=== PATIENT | female | born 1930 | race Caucasian/White ===

== ENCOUNTER 2016-07-08 10:51 | Inpatient (IN) | payer OTHER, MEDICARE ==
[~2016-07-08] VITALS: Ht 170.2 cm; Wt 78.2 kg
[~2016-07-08 10:51] MED LIST: ACCUPRIL10 MG PO; ANTIFUNGAL15 G1 TP; AQUAPHOR OINTM105 GM TP; BACTRIM,SEPT1 TABLET PO; CALCIUM 600 +1 EAC2 PO; CATAPRES0.1 MG PO; CHOLESTYRAMINE P4 GM PO; CIPRO250 MG PO; CIPRO500 MG PO; CLOPIDOGREL75 MG PO; COLO-40 TP; DEPO-MEDROL40 MG/ML IM; DOC-Q-LAX TABL1 EACH PO; DOCUSATE SODIU100 MG PO; ENDOCET 5-3251 EACH PO; HYDROCHLOROTH12.5 M3 PO; HYDROCHLOROTHIA50 MG; ICY HOT1 EACH TP; LEVETIRACETAM250 MG PO; LEVETIRACETAM500 MG PO; LEVOFLOXACIN750 MG PO; LIDOCAINE10 MG/1 ML IJ; LIPITOR10 MG PO; MELATONIN3 MG PO; METOPROLOL SUC100 MG; METOPROLOL SUCC25 MG PO; NEURONTIN100 MG PO; NORVASC10 MG PO; ONDANSETRON HCL4 MG PO; PANTOPRAZOLE SO40 MG PO; PERCOCET 5/31 TABLET PO; PHENERGAN25 MG PR; PHENERGAN25 MG/ML IV; PLAVIX75 MG; PLAVIX75 MG PO; PREDNISONE20 MG PO; PROTONIX40 MG PO; QUINAPRIL HCL10 MG; SENOKOT S,PE1 TABLET PO; SODIUM CHLORIDE1 G1 PO; SYNTHROID100 MCG; SYNTHROID100 MCG PO; SYNTHROID125 MCG PO; TOPAMAX50 MG PO; TOPROL XL100 MG PO; TOPROL XL25 MG PO; TRAMADOL HCL50 MG; TYLENOL REGULA325 MG PO; ULTRAM50 MG PO; WELLBUTRIN75 MG PO; ZANTAC150 MG PO; ZESTRIL40 MG PO; ZOCOR20 MG PO; ZOFRAN ODT4 MG PO; ZOFRAN4 MG PO; Zeasorb Antifungal Treatment,Mitrazol Powder TP
[2016-07-08 12:37] LABS: HEMATOCRIT 40.4 % (36.0-46.0); MCH 29.1 PG (29.0-34.0); MCHC 31.9 G/DL (30.0-36.0); PLATELET COUNT 310 K/uL (156-360); RBC DIS.WIDTH-CV 12.4 % (11.8-14.6); RBC DIS.WIDTH-SD 41.2 % (39-53); RED BLOOD COUNT 4.44 M/uL (3.80-5.20); WHITE BLOOD COUNT 8.8 K/uL (4.1-10.2)
[2016-07-08 12:51] LABS: CHLORIDE 92 mEq/L (99-109); POTASSIUM 4.3 mEq/L (3.7-5.4); SODIUM 132 mEq/L (136-147)
[2016-07-08 12:52] LABS: GLUCOSE 104 mg/dL (70-99)
[2016-07-08 12:54] LABS: ANION GAP 10 MEQ/L (2-14)
[2016-07-08 12:56] LABS: GFR ESTIMATE (CALCULATED) > 59 mL/min/
[2016-07-08 12:57] LABS: UREA NITROGEN (BUN) 9 mg/dL (9-23)
[2016-07-08 12:58] LABS: TROP-I INTERPRETATION NEGATIVE; TROPONIN-I < 0.01 ng/mL (0.0-0.30)
[2016-07-08 14:06] LABS: ADD MIUA? YES; BILIRUBIN NEGATIVE; BLOOD MODERATE; COLOR YELLOW ((YELLOW)); GLUCOSE (STRIP) NEGATIVE; KETONES NEGATIVE; LEUKOCYTES LARGE; NITRITE NEGATIVE; PROTEIN (STRIP) 100; SPECIFIC GRAVITY 1.013 (1.000-1.030); UROBILINOGEN 0.2 MG/DL (0.2-1.0)
[2016-07-08 14:20] LABS: BACTERIA 3+ /HPF; EPITHELIAL CELLS 1+ /HPF; MUCUS TRACE /LPF; RED BLOOD CELLS 30-40 /HPF (0-5); UCUL ADDED? YES; WHITE BLOOD CELLS TNTC /HPF (0-5); WHITE BLOOD CELLS CLUMP MANY /HPF (0-5)
[2016-07-08] MEDS ORDERED: BENZONATATE100 MG PO (17:18)
[2016-07-08] MEDS ORDERED: DUONEB 2.5-0.5 M3 ML AEROSOL (17:20)
[2016-07-08] MEDS ORDERED: ELIQUIS5 MG PO (17:21)
[2016-07-08] MEDS ORDERED: METOPROLOL TART75 MG PO (17:23)
[2016-07-08] MEDS ORDERED: PERCOCET 5/31 TABLET PO (17:23)
[2016-07-08] MEDS ORDERED: PROMETHAZINE12.5 M1 PO (17:24)
[2016-07-08 20:00] LABS: TROP-I INTERPRETATION NEGATIVE; TROPONIN-I < 0.01 ng/mL (0.0-0.30)
[2016-07-08 20:28] VITALS: BP 131/70
[2016-07-08 20:30] VITALS: BP 131/70
[2016-07-08 22:07] LABS: METH RESISTANT S AUREUS PCR NEGATIVE (NEGATIVE)
[2016-07-08 22:15] LABS: PROBE CHECK PASS; SPECIMEN PROCESSING CONTROL PASS
[2016-07-08 23:55] VITALS: BP 117/54
[2016-07-09] VITALS (14 sets, daily range): BP systolic 108–139; BP diastolic 45–114
[2016-07-09 05:57] LABS: HEMATOCRIT 39.3 % (36.0-46.0); MCH 29.2 PG (29.0-34.0); MCHC 30.8 G/DL (30.0-36.0); MCV 94.9 FL (83-99); MEAN PLAT.VOLUME 9.2 uM^3 (9.5-12.4); PLATELET COUNT 287 K/uL (156-360); RBC DIS.WIDTH-CV 12.6 % (11.8-14.6); RBC DIS.WIDTH-SD 43.7 % (39-53); RED BLOOD COUNT 4.14 M/uL (3.80-5.20); WHITE BLOOD COUNT 10.7 K/uL (4.1-10.2)
[2016-07-09 06:29] LABS: CHLORIDE 101 mEq/L (99-109); POTASSIUM 4.5 mEq/L (3.7-5.4); SODIUM 136 mEq/L (136-147)
[2016-07-09 06:30] LABS: GLUCOSE 109 mg/dL (70-99)
[2016-07-09 06:32] LABS: ANION GAP 11 MEQ/L (2-14)
[2016-07-09 06:35] LABS: GFR ESTIMATE (CALCULATED) > 59 mL/min/; UREA NITROGEN (BUN) 8 mg/dL (9-23)
[2016-07-09 07:43] LABS: POINT-OF-CARE METER ID UU13113781
[2016-07-09 08:59] LABS: BICARBONATE 29.1 mEq/L (22-26); CARBOXY HGB 2.7 % (0-5); METHEMOGLOBIN 1.8 % (0-1.5); PCO2 78 mm Hg (35-45); PO2 66 mm Hg (80-100)
[2016-07-09 09:00] LABS: COMMENTS - BLOOD GASES A+C+; DEVICE VENTIMASK; FI02 50 %; O2 FLOW 12 L/MIN; SITE RRA; TOTAL RESP RATE 21 resp/min; pH 7.18 (7.35-7.45)
[2016-07-09 10:00] LABS: TROP-I INTERPRETATION NEGATIVE; TROPONIN-I < 0.01 ng/mL (0.0-0.30)
[2016-07-09 11:42] LABS: BASE EXCESS 0.8 mEq/L (-3 to +3); BICARBONATE 29.2 mEq/L (22-26); CARBOXY HGB 2.5 % (0-5); COMMENTS - BLOOD GASES A+C+; DEVICE 840; FI02 40 %; METHEMOGLOBIN 1.5 % (0-1.5); MODE NIPPV; PCO2 65 mm Hg (35-45); PO2 79 mm Hg (80-100); SITE LR; TOTAL RESP RATE 15 resp/min
[2016-07-09 11:43] LABS: CONTINUOUS POS AIRWAY PRESSURE 5 cm H2O; PRES. SUPPORT 15 CM/H2O; pH 7.26 (7.35-7.45)
[2016-07-09 11:49] LABS: POINT-OF-CARE METER ID UU14174217
[2016-07-09 12:37] LABS: METH RESISTANT S AUREUS PCR NEGATIVE (NEGATIVE)
[2016-07-09 12:42] LABS: PROBE CHECK PASS; SPECIMEN PROCESSING CONTROL PASS
[2016-07-09 17:08] LABS: ADD MIUA? YES; BILIRUBIN NEGATIVE; BLOOD MODERATE; COLOR YELLOW ((YELLOW)); GLUCOSE (STRIP) NEGATIVE; KETONES 5; LEUKOCYTES LARGE; NITRITE NEGATIVE; PROTEIN (STRIP) NEGATIVE; UROBILINOGEN 0.2 MG/DL (0.2-1.0)
[2016-07-09 17:13] LABS: SPECIFIC GRAVITY 1.055 (1.000-1.030)
[2016-07-09 17:35] LABS: CASTS NONE SEEN /LPF; EPITHELIAL CELLS 1+ /HPF; MUCUS TRACE /LPF
[2016-07-09 17:36] LABS: WHITE BLOOD CELLS 30-40 /HPF (0-5)
[2016-07-09 17:37] LABS: BACTERIA NONE SEEN /HPF; UCUL ADDED? NO
[2016-07-09 23:43] LABS: BASE EXCESS 0 mEq/L (-3 to +3); BICARBONATE 27.7 mEq/L (22-26); METHEMOGLOBIN 1.7 % (0-1.5); PO2 75 mm Hg (80-100)
[2016-07-09 23:44] LABS: COMMENTS - BLOOD GASES C+; DEVICE NC; O2 FLOW 3 L/MIN; PCO2 59 mm Hg (35-45); SITE RR; TOTAL RESP RATE 16 resp/min; pH 7.28 (7.35-7.45)
[2016-07-10] VITALS (22 sets, daily range): BP systolic 71–126; BP diastolic 39–83
[2016-07-10 00:31] LABS: POINT-OF-CARE METER ID UU14174217
[2016-07-10 06:31] LABS: POINT-OF-CARE METER ID UU14174217
[2016-07-10 06:46] LABS: EOSINOPHIL (%) 0 % (0-5); HEMATOCRIT 38.9 % (36.0-46.0); IMMATURE GRANULOCYTE (%) 1.4 % (0.0-0.7); IMMATURE GRANULOCYTE COUNT 0.1 K/uL; INSTRUMENT ABS NEUTROPHIL CT 7.2 K/uL; LYMPHOCYTE COUNT 0.4 K/uL (1.0-2.8); MCH 28.9 PG (29.0-34.0); MCHC 31.4 G/DL (30.0-36.0); MCV 92.2 FL (83-99); MEAN PLAT.VOLUME 9.3 uM^3 (9.5-12.4); MONOCYTE (%) 1.1 % (3-12); MONOCYTE COUNT 0.1 K/uL (0-0.8); NEUTROPHIL (%) 91.7 % (45-76); NEUTROPHIL COUNT 7.2 K/uL (1.8-6.4); PLATELET COUNT 266 K/uL (156-360); RBC DIS.WIDTH-CV 12.3 % (11.8-14.6); RBC DIS.WIDTH-SD 41.9 % (39-53); RED BLOOD COUNT 4.22 M/uL (3.80-5.20); WHITE BLOOD COUNT 7.8 K/uL (4.1-10.2)
[2016-07-10 08:35] LABS: ALKALINE PHOSPHATASE 54 IU/L (3-129); ANION GAP 9 MEQ/L (2-14); CHLORIDE 101 MEQ/L (99-109); GFR ESTIMATE (CALCULATED) > 59 mL/min/; GLUCOSE 108 mg/dL (70-99); POTASSIUM 4.8 MEQ/L (3.7-5.4); SAMPLE HEMOLYSIS CHECK 0; SAMPLE ICTERIC CHECK 0; SAMPLE LIPEMIA CHECK 0; SODIUM 138 MEQ/L (136-147); TOTAL BILIRUBIN 0.6 MG/DL (0.0-1.0); UREA NITROGEN (BUN) 9 mg/dL (9-23)
[2016-07-10 12:35] LABS: BASE EXCESS 2.6 mEq/L (-3 to +3); BICARBONATE 28.8 mEq/L (22-26); CARBOXY HGB 1.8 % (0-5); METHEMOGLOBIN 1.5 % (0-1.5); pH 7.36 (7.35-7.45)
[2016-07-10 12:36] LABS: COMMENTS - BLOOD GASES A+C+; DEVICE HHFNC; FI02 40 %; O2 FLOW 50 L/MIN; PCO2 51 mm Hg (35-45); PO2 105 mm Hg (80-100); SITE LR; TOTAL RESP RATE 18 resp/min
[2016-07-10 22:04] LABS: POINT-OF-CARE METER ID UU14174217
[2016-07-11] VITALS (13 sets, daily range): BP systolic 85–122; BP diastolic 40–69
[2016-07-11 09:31] LABS: POINT-OF-CARE METER ID UU13113731
[2016-07-11 11:39] LABS: POINT-OF-CARE METER ID UU13113731
[2016-07-11 16:28] LABS: POINT-OF-CARE METER ID UU13113731
[2016-07-11 23:48] LABS: POINT-OF-CARE METER ID UU14174217
[2016-07-12] VITALS (11 sets, daily range): BP systolic 101–138; BP diastolic 52–76
[2016-07-12 06:03] LABS: MCH 28.9 PG (29.0-34.0); MCHC 31.8 G/DL (30.0-36.0); MCV 90.9 FL (83-99); MEAN PLAT.VOLUME 9.1 uM^3 (9.5-12.4); PLATELET COUNT 264 K/uL (156-360); RBC DIS.WIDTH-CV 12.5 % (11.8-14.6); RBC DIS.WIDTH-SD 41.3 % (39-53); RED BLOOD COUNT 3.74 M/uL (3.80-5.20)
[2016-07-12 06:04] LABS: WHITE BLOOD COUNT 11.4 K/uL (4.1-10.2)
[2016-07-12 07:10] LABS: ANION GAP 8 MEQ/L (2-14); CHLORIDE 98 MEQ/L (99-109); GFR ESTIMATE (CALCULATED) > 59 mL/min/; GLUCOSE 134 mg/dL (70-99); POTASSIUM 4.2 MEQ/L (3.7-5.4); SAMPLE HEMOLYSIS CHECK 0; SAMPLE ICTERIC CHECK 0; SAMPLE LIPEMIA CHECK 0; SODIUM 134 MEQ/L (136-147); UREA NITROGEN (BUN) 18 mg/dL (9-23)
[2016-07-13 00:55] VITALS: BP 121/65
[2016-07-13 04:55] VITALS: BP 126/69
[2016-07-13 07:01] LABS: HEMATOCRIT 32.4 % (36.0-46.0); MCH 29.5 PG (29.0-34.0); MCHC 32.4 G/DL (30.0-36.0); MEAN PLAT.VOLUME 9.4 uM^3 (9.5-12.4); PLATELET COUNT 233 K/uL (156-360); RBC DIS.WIDTH-CV 12.7 % (11.8-14.6); RBC DIS.WIDTH-SD 41.7 % (39-53); RED BLOOD COUNT 3.56 M/uL (3.80-5.20); WHITE BLOOD COUNT 8.8 K/uL (4.1-10.2)
[2016-07-13 08:03] LABS: ANION GAP 5 MEQ/L (2-14); CHLORIDE 99 MEQ/L (99-109); GFR ESTIMATE (CALCULATED) > 59 mL/min/; GLUCOSE 113 mg/dL (70-99); POTASSIUM 3.8 MEQ/L (3.7-5.4); SAMPLE HEMOLYSIS CHECK 0; SAMPLE ICTERIC CHECK 0; SAMPLE LIPEMIA CHECK 0; SODIUM 135 MEQ/L (136-147); UREA NITROGEN (BUN) 15 mg/dL (9-23)
[2016-07-13 08:41] VITALS: BP 115/65
[2016-07-13 11:17] VITALS: BP 132/67
[2016-07-13 15:07] VITALS: BP 112/61
[2016-07-13 19:28] VITALS: BP 139/82
[2016-07-14 00:25] VITALS: BP 131/73
[2016-07-14 05:28] VITALS: BP 133/64
[2016-07-14 08:52] VITALS: BP 130/62
[2016-07-14 12:14] VITALS: BP 129/73
[2016-07-14] MEDS ORDERED: ADVAIR HFA120 INHALA IH (12:57)
[2016-07-14] MEDS ORDERED: SPIRIVA RESPIMAT4 GM IH (12:57)
[2016-07-14] MEDS ORDERED: ELIQUIS2.5 MG PO (12:57)
[2016-07-14] MEDS ORDERED: PREDNISONE10 MG PO (12:57)
[2016-07-14] MEDS ORDERED: BACTRIM,SEPT1 TABLET PO (12:57)
== END 2016-07-14 15:20 | DRG 189 ==
LOC: EME → EDBD 10:51 → EME 10:51 → EDOF 15:58 → 4WEST 15:58 → 4EAST 15:58 → 4WEST 07-09 09:07 → 4EAST 07-09 09:16 → 4WEST 07-09 09:52 → 4EAST 07-12 21:28
PROVIDERS: Emergency Medicine; Hospitalist; Internal Medicine; Internal Medicine Critical Care Medicine
DX: J96.02 Acute respiratory failure with hypercapnia (principal); N39.0 Urinary tract infection, site not specified; G93.41 Metabolic encephalopathy; J44.1 Chronic obstructive pulmonary disease with (acute) exacerbation; J96.01 Acute respiratory failure with hypoxia; J40 Bronchitis, not specified as acute or chronic; L89.152 Pressure ulcer of sacral region, stage 2; F03.90 Unspecified dementia, unspecified severity, without behavioral disturbance, psychotic disturbance, mood disturbance, and anxiety; J90 Pleural effusion, not elsewhere classified; I10 Essential (primary) hypertension; Z68.41 Body mass index [BMI] 40.0-44.9, adult; E66.01 Morbid (severe) obesity due to excess calories; I48.0 Paroxysmal atrial fibrillation; I95.9 Hypotension, unspecified; G91.2 (Idiopathic) normal pressure hydrocephalus; G47.33 Obstructive sleep apnea (adult) (pediatric); M06.9 Rheumatoid arthritis, unspecified; I25.10 Atherosclerotic heart disease of native coronary artery without angina pectoris; R56.9 Unspecified convulsions; J32.9 Chronic sinusitis, unspecified; E87.1 Hypo-osmolality and hyponatremia; E03.9 Hypothyroidism, unspecified; I71.2 Thoracic aortic aneurysm, without rupture; M19.90 Unspecified osteoarthritis, unspecified site; Z98.1 Arthrodesis status; F32.9 Major depressive disorder, single episode, unspecified; B96.20 Unspecified Escherichia coli [E. coli] as the cause of diseases classified elsewhere; Z74.01 Bed confinement status
CPT/HCPCS: 36600; 70450; 71020; 71275; 74177; 80048; 80053; 81003; 82803; 82948; 83605; 84443; 84484; 85025; 85027; 87040; 87077; 87086; 87186; 87641; 87801; 92610 GN; 93005; 93970; 94002; 94640; 94640 76; 94760; 94799; 99202; 99281; 99285; J0696; J1335; J1815; J2310; J2405; J2543; J2920; J3370; J7030; J7050; J7512

== ENCOUNTER 2016-09-30 16:34 | Inpatient (IN) | payer OTHER, MEDICARE ==
[~2016-09-30] VITALS: Ht 170.2 cm; Wt 120.3 kg
[~2016-09-30 16:34] MED LIST changes: +ADVAIR HFA120 INHALA IH; +BENZONATATE100 MG PO; +DUONEB 2.5-0.5 M3 ML AEROSOL; +ELIQUIS2.5 MG PO; +ELIQUIS5 MG PO; +LOPRESSOR100 M1 PO; +PREDNISONE10 MG PO; +PROMETHAZINE12.5 M1 PO; +SPIRIVA RESPIMAT4 GM IH
[2016-09-30 17:40] LABS: EOSINOPHIL (%) 0.1 % (0-5); HEMATOCRIT 34.2 % (36.0-46.0); IMMATURE GRANULOCYTE (%) 0.5 % (0.0-0.7); IMMATURE GRANULOCYTE COUNT 0.1 K/uL; INSTRUMENT ABS NEUTROPHIL CT 10.2 K/uL; LYMPHOCYTE COUNT 0.9 K/uL (1.0-2.8); MCH 28.4 PG (29.0-34.0); MCHC 31.6 G/DL (30.0-36.0); MEAN PLAT.VOLUME 8.9 uM^3 (9.5-12.4); MONOCYTE (%) 14.2 % (3-12); MONOCYTE COUNT 1.9 K/uL (0-0.8); NEUTROPHIL (%) 78.5 % (45-76); NEUTROPHIL COUNT 10.2 K/uL (1.8-6.4); PLATELET COUNT 249 K/uL (156-360); RBC DIS.WIDTH-CV 13.5 % (11.8-14.6); RBC DIS.WIDTH-SD 44.3 % (39-53)
[2016-09-30 17:49] LABS: CHLORIDE 93 mEq/L (99-109); POTASSIUM 4.3 mEq/L (3.7-5.4); SODIUM 130 mEq/L (136-147)
[2016-09-30 17:51] LABS: GLUCOSE 130 mg/dL (70-99)
[2016-09-30 17:52] LABS: ANION GAP 7 MEQ/L (2-14)
[2016-09-30 17:53] LABS: TOTAL BILIRUBIN 0.8 mg/dL (0.0-1.0)
[2016-09-30 17:55] LABS: ALKALINE PHOSPHATASE 81 IU/L (3-129); GFR ESTIMATE (CALCULATED) > 59 mL/min/
[2016-09-30 17:56] LABS: UREA NITROGEN (BUN) 10 mg/dL (9-23)
[2016-09-30 18:01] LABS: TROP-I INTERPRETATION NEGATIVE; TROPONIN-I < 0.01 ng/mL (0.0-0.30)
[2016-09-30] MEDS ORDERED: ISOSORBIDE DINI30 MG PO (21:09)
[2016-09-30] MEDS ORDERED: SPIRIVA RESPIMAT4 GM IH (21:09)
[2016-09-30] MEDS ORDERED: NITROSTAT0.4 MG SL (21:12)
[2016-09-30 21:33] LABS: BASE EXCESS 5.7 mEq/L (-3 to +3); BICARBONATE 31.1 mEq/L (22-26); CARBOXY HGB 2.5 % (0-5); COMMENTS - BLOOD GASES A+C+; DEVICE NC; METHEMOGLOBIN 0.7 % (0-1.5); O2 FLOW 2 L/MIN; PCO2 48 mm Hg (35-45); PO2 96 mm Hg (80-100); SITE RR; pH 7.42 (7.35-7.45)
[2016-10-01 00:19] VITALS: BP 122/74
[2016-10-01 01:29] LABS: TROP-I INTERPRETATION NEGATIVE; TROPONIN-I < 0.01 ng/mL (0.0-0.30)
[2016-10-01 03:59] VITALS: BP 119/65
[2016-10-01 07:13] LABS: EOSINOPHIL COUNT 0.2 K/uL (0-0.3); HEMATOCRIT 31.1 % (36.0-46.0); IMMATURE GRANULOCYTE (%) 0.5 % (0.0-0.7); IMMATURE GRANULOCYTE COUNT 0.1 K/uL; INSTRUMENT ABS NEUTROPHIL CT 7.1 K/uL; LYMPHOCYTE COUNT 1.2 K/uL (1.0-2.8); MCH 29.6 PG (29.0-34.0); MCHC 32.5 G/DL (30.0-36.0); MCV 91.2 FL (83-99); MEAN PLAT.VOLUME 9.2 uM^3 (9.5-12.4); MONOCYTE (%) 15.7 % (3-12); MONOCYTE COUNT 1.6 K/uL (0-0.8); NEUTROPHIL COUNT 7.1 K/uL (1.8-6.4); PLATELET COUNT 233 K/uL (156-360); RBC DIS.WIDTH-CV 13.6 % (11.8-14.6); RBC DIS.WIDTH-SD 45.8 % (39-53); RED BLOOD COUNT 3.41 M/uL (3.80-5.20); WHITE BLOOD COUNT 10.2 K/uL (4.1-10.2)
[2016-10-01 07:29] LABS: TROP-I INTERPRETATION NEGATIVE; TROPONIN-I < 0.01 ng/mL (0.0-0.30)
[2016-10-01 07:34] LABS: 6-HOUR TOBRAMYCIN 4.2 UG/ML; ANION GAP 6 MEQ/L (2-14); CHLORIDE 96 MEQ/L (99-109); GFR ESTIMATE (CALCULATED) > 59 mL/min/; GLUCOSE 95 mg/dL (70-99); POTASSIUM 4.2 MEQ/L (3.7-5.4); SAMPLE HEMOLYSIS CHECK 0; SAMPLE ICTERIC CHECK 0; SAMPLE LIPEMIA CHECK 0; SODIUM 135 MEQ/L (136-147); UREA NITROGEN (BUN) 12 mg/dL (9-23)
[2016-10-01 07:44] VITALS: BP 136/59
[2016-10-01 11:10] VITALS: BP 137/62
[2016-10-01 16:25] VITALS: BP 121/70
[2016-10-01 20:21] VITALS: BP 128/79
[2016-10-02 00:44] VITALS: BP 90/55
[2016-10-02 04:21] VITALS: BP 109/60
[2016-10-02 07:48] LABS: HEMATOCRIT 32.1 % (36.0-46.0); MCH 28.4 PG (29.0-34.0); MCHC 31.2 G/DL (30.0-36.0); MCV 91.2 FL (83-99); PLATELET COUNT 237 K/uL (156-360); RBC DIS.WIDTH-CV 13.5 % (11.8-14.6); RBC DIS.WIDTH-SD 45.1 % (39-53); RED BLOOD COUNT 3.52 M/uL (3.80-5.20); WHITE BLOOD COUNT 11.7 K/uL (4.1-10.2)
[2016-10-02 07:50] VITALS: BP 125/86
[2016-10-02 08:03] LABS: ANION GAP 3 MEQ/L (2-14); CHLORIDE 94 MEQ/L (99-109); GFR ESTIMATE (CALCULATED) > 59 mL/min/; GLUCOSE 93 mg/dL (70-99); POTASSIUM 4.5 MEQ/L (3.7-5.4); SAMPLE HEMOLYSIS CHECK 0; SAMPLE ICTERIC CHECK 0; SAMPLE LIPEMIA CHECK 0; SODIUM 132 MEQ/L (136-147); UREA NITROGEN (BUN) 13 mg/dL (9-23)
[2016-10-02 11:23] VITALS: BP 104/67
[2016-10-02 15:50] VITALS: BP 126/71
[2016-10-03 00:56] VITALS: BP 131/76
[2016-10-03 07:28] VITALS: BP 135/79
[2016-10-03 07:45] LABS: ANION GAP 5 MEQ/L (2-14); CHLORIDE 95 MEQ/L (99-109); GFR ESTIMATE (CALCULATED) > 59 mL/min/; GLUCOSE 90 mg/dL (70-99); POTASSIUM 4.1 MEQ/L (3.7-5.4); SAMPLE HEMOLYSIS CHECK 0; SAMPLE ICTERIC CHECK 0; SAMPLE LIPEMIA CHECK 0; SODIUM 135 MEQ/L (136-147); UREA NITROGEN (BUN) 10 mg/dL (9-23)
[2016-10-03 07:57] LABS: HEMATOCRIT 32.8 % (36.0-46.0); MCH 29.3 PG (29.0-34.0); MCHC 32.3 G/DL (30.0-36.0); MCV 90.6 FL (83-99); MEAN PLAT.VOLUME 9.2 uM^3 (9.5-12.4); PLATELET COUNT 259 K/uL (156-360); RBC DIS.WIDTH-CV 13.4 % (11.8-14.6); RBC DIS.WIDTH-SD 44.4 % (39-53); RED BLOOD COUNT 3.62 M/uL (3.80-5.20)
[2016-10-03 16:57] VITALS: BP 112/56
[2016-10-04 00:03] VITALS: BP 143/77
[2016-10-04 06:50] VITALS: BP 127/73
[2016-10-04] MEDS ORDERED: LEVAQUIN750 MG PO (08:36)
== END 2016-10-04 13:40 | DRG 190 ==
LOC: EME 16:34 → EDOF 20:44 → ENRESERV 20:46 → EDOF 21:11 → 2EAST 21:11 → ENRESERV 21:16 → 2EAST 23:30
PROVIDERS: Emergency Medicine; Hospitalist; Physician Assistant Medical
DX: J44.0 Chronic obstructive pulmonary disease with (acute) lower respiratory infection (principal); J18.0 Bronchopneumonia, unspecified organism; I48.0 Paroxysmal atrial fibrillation; I25.2 Old myocardial infarction; G40.909 Epilepsy, unspecified, not intractable, without status epilepticus; E87.1 Hypo-osmolality and hyponatremia; I25.10 Atherosclerotic heart disease of native coronary artery without angina pectoris; E03.9 Hypothyroidism, unspecified; J96.12 Chronic respiratory failure with hypercapnia; J96.11 Chronic respiratory failure with hypoxia; E66.9 Obesity, unspecified; I10 Essential (primary) hypertension; K21.9 Gastro-esophageal reflux disease without esophagitis; E78.5 Hyperlipidemia, unspecified; F01.50 Vascular dementia, unspecified severity, without behavioral disturbance, psychotic disturbance, mood disturbance, and anxiety; Z86.73 Personal history of transient ischemic attack (TIA), and cerebral infarction without residual deficits; Z74.01 Bed confinement status; Z79.02 Long term (current) use of antithrombotics/antiplatelets; Z95.5 Presence of coronary angioplasty implant and graft; Z68.41 Body mass index [BMI] 40.0-44.9, adult
CPT/HCPCS: 36600; 71010; 71250; 80048; 80053; 80200; 81003; 82803; 83605; 84484; 85025; 85027; 87040; 93005; 94640; 94640 76; 94799; 99202; 99281; 99285; J1956; J2543; J3260; J7050

== ENCOUNTER 2016-10-19 19:35 | Inpatient (IN) | payer OTHER, MEDICARE ==
[~2016-10-19] VITALS: Ht 170.2 cm; Wt 117.0 kg
[~2016-10-19 19:35] MED LIST changes: +ISOSORBIDE DINI30 MG PO; +LEVAQUIN750 MG PO; +NITROSTAT0.4 MG SL
[2016-10-19 20:33] LABS: VENOUS PCO2 103 mm Hg (41-51)
[2016-10-19 20:34] LABS: CARBON DIOXIDE (BICARBONATE) > 40.0 MEQ/L (20-31)
[2016-10-19 20:40] LABS: HEMATOCRIT 36.1 % (36.0-46.0); MCH 28.1 PG (29.0-34.0); MCHC 30.7 G/DL (30.0-36.0); MCV 91.4 FL (83-99); MEAN PLAT.VOLUME 8.6 uM^3 (9.5-12.4); PLATELET COUNT 457 K/uL (156-360); RBC DIS.WIDTH-CV 13.4 % (11.8-14.6); RBC DIS.WIDTH-SD 45.3 % (39-53); RED BLOOD COUNT 3.95 M/uL (3.80-5.20); WHITE BLOOD COUNT 16.7 K/uL (4.1-10.2)
[2016-10-19 20:44] LABS: CHLORIDE 91 mEq/L (99-109)
[2016-10-19 20:45] LABS: POTASSIUM 4.3 mEq/L (3.7-5.4); SODIUM 132 mEq/L (136-147)
[2016-10-19 20:46] LABS: GLUCOSE 137 mg/dL (70-99)
[2016-10-19 20:48] LABS: ANION GAP 8 MEQ/L (2-14)
[2016-10-19 20:50] LABS: GFR ESTIMATE (CALCULATED) > 59 mL/min/
[2016-10-19 20:51] LABS: UREA NITROGEN (BUN) 15 mg/dL (9-23)
[2016-10-19 20:54] LABS: TROP-I INTERPRETATION NEGATIVE; TROPONIN-I < 0.01 ng/mL (0.0-0.30)
[2016-10-19 22:08] LABS: BASE EXCESS 11.2 mEq/L (-3 to +3); BICARBONATE 33.4 mEq/L (22-26); CARBOXY HGB 2.4 % (0-5)
[2016-10-19 22:11] LABS: PCO2 34 mm Hg (35-45); PO2 58 mm Hg (80-100)
[2016-10-19 22:12] LABS: COMMENTS - BLOOD GASES A+C+; DEVICE VENT; FI02 50 %; MECHANICAL RATE 22 resp/min; MODE AC; PEEP 5 CM/H20; SITE LR; TIDAL VOLUME 450 ML; TOTAL RESP RATE 22 resp/min
[2016-10-19 23:58] LABS: BASE EXCESS 5.6 mEq/L (-3 to +3); BICARBONATE 29.8 mEq/L (22-26); CARBOXY HGB 1.9 % (0-5); METHEMOGLOBIN 1.6 % (0-1.5)
[2016-10-19 23:59] LABS: COMMENTS - BLOOD GASES A+C+; DEVICE VENT; FI02 50 %; MECHANICAL RATE 22 resp/min; MODE AC; PCO2 41 mm Hg (35-45); PEEP 5 CM/H20; PO2 324 mm Hg (80-100); SITE LR; TIDAL VOLUME 350 ML; TOTAL RESP RATE 22 resp/min; pH 7.47 (7.35-7.45)
[2016-10-20] VITALS (27 sets, daily range): BP systolic 77–155; BP diastolic 49–126
[2016-10-20 00:24] LABS: ADD MIUA? YES; BILIRUBIN NEGATIVE; BLOOD SMALL; COLOR YELLOW ((YELLOW)); GLUCOSE (STRIP) NEGATIVE; KETONES NEGATIVE; LEUKOCYTES SMALL; NITRITE NEGATIVE; PROTEIN (STRIP) NEGATIVE; SPECIFIC GRAVITY 1.011 (1.000-1.030); UROBILINOGEN 0.2 MG/DL (0.2-1.0)
[2016-10-20] MEDS ORDERED: NITROSTAT0.4 MG SL (00:51)
[2016-10-20] MEDS ORDERED: DUONEB 2.5-0.5 M3 ML AEROSOL (00:54)
[2016-10-20 00:56] LABS: BACTERIA 1+ /HPF
[2016-10-20 00:58] LABS: WHITE BLOOD CELLS 15-20 /HPF (0-5)
[2016-10-20 00:59] LABS: EPITHELIAL CELLS RARE /HPF; RED BLOOD CELLS 0-5 /HPF (0-5); UCUL ADDED? YES
[2016-10-20 01:00] LABS: MUCUS RARE /LPF
[2016-10-20] MEDS ORDERED: 8 HOUR PAIN RE650 M1 PO (01:01)
[2016-10-20] MEDS ORDERED: ZANTAC150 MG PO (01:03)
[2016-10-20 01:05] LABS: METH RESISTANT S AUREUS PCR POSITIVE (NEGATIVE)
[2016-10-20] MEDS ORDERED: NEURONTIN100 MG PO (01:06)
[2016-10-20] MEDS ORDERED: LOPRESSOR100 M1 PO (01:09)
[2016-10-20] MEDS ORDERED: KEPPRA250 MG PO (01:14)
[2016-10-20 01:20] LABS: PROBE CHECK PASS
[2016-10-20] MEDS ORDERED: IMDUR30 MG PO (01:27)
[2016-10-20] MEDS ORDERED: ELIQUIS2.5 MG PO (01:28)
[2016-10-20] MEDS ORDERED: ADVAIR HFA120 INHALA IH (01:29)
[2016-10-20] MEDS ORDERED: SPIRIVA RESPIMAT4 GM IH (01:30)
[2016-10-20] MEDS ORDERED: SYNTHROID125 MCG PO (01:30)
[2016-10-20] MEDS ORDERED: PLAVIX75 MG PO (01:31)
[2016-10-20] MEDS ORDERED: LIPITOR10 MG PO (01:32)
[2016-10-20] MEDS ORDERED: LASIX40 MG PO (01:43)
[2016-10-20 05:26] LABS: CHLORIDE 96 mEq/L (99-109); POTASSIUM 4.3 mEq/L (3.7-5.4); SODIUM 135 mEq/L (136-147)
[2016-10-20 05:29] LABS: ANION GAP 13 MEQ/L (2-14)
[2016-10-20 05:30] LABS: TOTAL BILIRUBIN 1.2 mg/dL (0.0-1.0)
[2016-10-20 05:32] LABS: ALKALINE PHOSPHATASE 114 IU/L (3-129); GFR ESTIMATE (CALCULATED) > 59 mL/min/
[2016-10-20 05:33] LABS: UREA NITROGEN (BUN) 16 mg/dL (9-23)
[2016-10-20 05:37] LABS: TROP-I INTERPRETATION NEGATIVE; TROPONIN-I 0.02 ng/mL (0.0-0.30)
[2016-10-20 05:48] LABS: GLUCOSE 95 mg/dL (70-99)
[2016-10-20 12:05] LABS: BASE EXCESS 7.2 mEq/L (-3 to +3); BICARBONATE 31.2 mEq/L (22-26); CARBOXY HGB 2.1 % (0-5); METHEMOGLOBIN 1.7 % (0-1.5); PCO2 41 mm Hg (35-45); pH 7.49 (7.35-7.45)
[2016-10-20 12:07] LABS: COMMENTS - BLOOD GASES A+C+; DEVICE 840; FI02 35 %; MECHANICAL RATE 18 resp/min; MODE AC; PEEP 5 CM/H20; PO2 66 mm Hg (80-100); SITE RR; TIDAL VOLUME 350 ML; TOTAL RESP RATE 18 resp/min
[2016-10-20 13:22] LABS: TROP-I INTERPRETATION NEGATIVE; TROPONIN-I < 0.01 ng/mL (0.0-0.30)
[2016-10-21] VITALS (30 sets, daily range): BP systolic 66–132; BP diastolic 46–113
[2016-10-21 04:42] LABS: BASOPHIL COUNT 0.1 K/uL (0-0.1); EOSINOPHIL (%) 3.6 % (0-5); EOSINOPHIL COUNT 0.4 K/uL (0-0.3); IMMATURE GRANULOCYTE (%) 0.5 % (0.0-0.7); IMMATURE GRANULOCYTE COUNT 0.1 K/uL; INSTRUMENT ABS NEUTROPHIL CT 7.9 K/uL; LYMPHOCYTE COUNT 1.4 K/uL (1.0-2.8); MCH 27.8 PG (29.0-34.0); MCHC 30.9 G/DL (30.0-36.0); MCV 89.9 FL (83-99); MEAN PLAT.VOLUME 8.6 uM^3 (9.5-12.4); MONOCYTE (%) 12.8 % (3-12); MONOCYTE COUNT 1.4 K/uL (0-0.8); NEUTROPHIL COUNT 7.9 K/uL (1.8-6.4); PLATELET COUNT 367 K/uL (156-360); RBC DIS.WIDTH-CV 13.7 % (11.8-14.6); RED BLOOD COUNT 3.67 M/uL (3.80-5.20); WHITE BLOOD COUNT 11.3 K/uL (4.1-10.2)
[2016-10-21 04:52] LABS: CHLORIDE 102 mEq/L (99-109); SODIUM 138 mEq/L (136-147)
[2016-10-21 04:54] LABS: GLUCOSE 88 mg/dL (70-99)
[2016-10-21 04:56] LABS: ANION GAP 10 MEQ/L (2-14)
[2016-10-21 04:58] LABS: GFR ESTIMATE (CALCULATED) > 59 mL/min/
[2016-10-21 04:59] LABS: POTASSIUM 3.4 mEq/L (3.7-5.4); UREA NITROGEN (BUN) 23 mg/dL (9-23)
[2016-10-21 15:40] LABS: BASE EXCESS 2.5 mEq/L (-3 to +3); BICARBONATE 27.9 mEq/L (22-26); PCO2 45 mm Hg (35-45)
[2016-10-21 15:42] LABS: COMMENTS - BLOOD GASES A+C+; DEVICE MASK VENTILATOR; PO2 94 mm Hg (80-100); SITE RR
[2016-10-21 15:43] LABS: CONTINUOUS POS AIRWAY PRESSURE 5 cm H2O; FI02 0.35 %; MODE SPONTANOUS; PRES. SUPPORT 12 CM/H2O; TOTAL RESP RATE 10 resp/min
[2016-10-22] VITALS (24 sets, daily range): BP systolic 87–143; BP diastolic 51–94
[2016-10-22 23:59] LABS: INTER. NORMALIZED RATIO 1.4; PROTHROMBIN TIME 15.6 SEC (10.2-12.9)
[2016-10-23] VITALS (18 sets, daily range): BP systolic 88–136; BP diastolic 52–98
[2016-10-23 00:02] LABS: PTT 62.4 SEC (25-37)
[2016-10-23 14:22] LABS: EOSINOPHIL (%) 2.7 % (0-5); EOSINOPHIL COUNT 0.4 K/uL (0-0.3); HEMATOCRIT 32.4 % (36.0-46.0); IMMATURE GRANULOCYTE (%) 0.6 % (0.0-0.7); IMMATURE GRANULOCYTE COUNT 0.1 K/uL; INSTRUMENT ABS NEUTROPHIL CT 10.2 K/uL; LYMPHOCYTE COUNT 1.1 K/uL (1.0-2.8); MCH 28.7 PG (29.0-34.0); MCHC 31.2 G/DL (30.0-36.0); MEAN PLAT.VOLUME 8.8 uM^3 (9.5-12.4); MONOCYTE (%) 11.9 % (3-12); MONOCYTE COUNT 1.6 K/uL (0-0.8); NEUTROPHIL (%) 76.4 % (45-76); NEUTROPHIL COUNT 10.2 K/uL (1.8-6.4); PLATELET COUNT 273 K/uL (156-360); RBC DIS.WIDTH-SD 47.3 % (39-53); RED BLOOD COUNT 3.52 M/uL (3.80-5.20); WHITE BLOOD COUNT 13.4 K/uL (4.1-10.2)
[2016-10-23 14:25] LABS: BASE EXCESS 1.4 mEq/L (-3 to +3); BICARBONATE 28.3 mEq/L (22-26); CARBOXY HGB 2.4 % (0-5); METHEMOGLOBIN 0.7 % (0-1.5); PCO2 55 mm Hg (35-45); PO2 73 mm Hg (80-100); pH 7.32 (7.35-7.45)
[2016-10-23 14:26] LABS: COMMENTS - BLOOD GASES C+; FI02 30 %; PEEP 5 CM/H20; PRES. SUPPORT 10 CM/H2O; SITE RADIAL; TOTAL RESP RATE 18 resp/min
[2016-10-23 14:51] LABS: ANION GAP 7 MEQ/L (2-14); CHLORIDE 105 MEQ/L (99-109); GFR ESTIMATE (CALCULATED) 56 mL/min/; GLUCOSE 109 mg/dL (70-99); MAGNESIUM 1.4 mg/dl (1.3-2.7); POTASSIUM 3.8 MEQ/L (3.7-5.4); SAMPLE HEMOLYSIS CHECK 0; SAMPLE ICTERIC CHECK 0; SAMPLE LIPEMIA CHECK 0; SODIUM 139 MEQ/L (136-147)
[2016-10-23 14:53] LABS: UREA NITROGEN (BUN) 36 mg/dL (9-23)
[2016-10-23 17:36] LABS: C DIFF TOXIN NEGATIVE (NEGATIVE)
[2016-10-23 17:39] LABS: PROBE CHECK PASS; SPECIMEN PROCESSING CONTROL PASS
[2016-10-24] VITALS (24 sets, daily range): BP systolic 88–183; BP diastolic 50–113
[2016-10-24 12:29] LABS: EOSINOPHIL (%) 2.6 % (0-5); EOSINOPHIL COUNT 0.4 K/uL (0-0.3); HEMATOCRIT 31.9 % (36.0-46.0); IMMATURE GRANULOCYTE (%) 0.9 % (0.0-0.7); IMMATURE GRANULOCYTE COUNT 0.1 K/uL; INSTRUMENT ABS NEUTROPHIL CT 11.9 K/uL; MCH 27.7 PG (29.0-34.0); MCHC 30.4 G/DL (30.0-36.0); MCV 91.1 FL (83-99); MEAN PLAT.VOLUME 8.9 uM^3 (9.5-12.4); MONOCYTE (%) 13.1 % (3-12); NEUTROPHIL (%) 76.8 % (45-76); NEUTROPHIL COUNT 11.9 K/uL (1.8-6.4); PLATELET COUNT 249 K/uL (156-360); RBC DIS.WIDTH-CV 13.9 % (11.8-14.6); RBC DIS.WIDTH-SD 46.6 % (39-53); WHITE BLOOD COUNT 15.5 K/uL (4.1-10.2)
[2016-10-24 12:52] LABS: ANION GAP 10 MEQ/L (2-14); CHLORIDE 105 MEQ/L (99-109); POTASSIUM 3.8 MEQ/L (3.7-5.4); SAMPLE HEMOLYSIS CHECK 0; SAMPLE ICTERIC CHECK 0; SAMPLE LIPEMIA CHECK 0; SODIUM 138 MEQ/L (136-147)
[2016-10-24 12:57] LABS: GFR ESTIMATE (CALCULATED) 56 mL/min/; GLUCOSE 105 mg/dL (70-99); UREA NITROGEN (BUN) 36 mg/dL (9-23)
[2016-10-24 21:58] LABS: C DIFF TOXIN ND (NEGATIVE)
[2016-10-25] VITALS (24 sets, daily range): BP systolic 75–178; BP diastolic 50–91
[2016-10-25 04:20] LABS: BASOPHIL COUNT 0.1 K/uL (0-0.1); EOSINOPHIL (%) 2.8 % (0-5); EOSINOPHIL COUNT 0.5 K/uL (0-0.3); HEMATOCRIT 34.7 % (36.0-46.0); IMMATURE GRANULOCYTE (%) 0.9 % (0.0-0.7); IMMATURE GRANULOCYTE COUNT 0.2 K/uL; INSTRUMENT ABS NEUTROPHIL CT 12.8 K/uL; LYMPHOCYTE COUNT 1.1 K/uL (1.0-2.8); MCH 27.2 PG (29.0-34.0); MCHC 30.3 G/DL (30.0-36.0); MCV 89.9 FL (83-99); MEAN PLAT.VOLUME 8.7 uM^3 (9.5-12.4); MONOCYTE (%) 14.1 % (3-12); MONOCYTE COUNT 2.4 K/uL (0-0.8); NEUTROPHIL (%) 75.3 % (45-76); NEUTROPHIL COUNT 12.8 K/uL (1.8-6.4); PLATELET COUNT 277 K/uL (156-360); RBC DIS.WIDTH-CV 13.8 % (11.8-14.6); RBC DIS.WIDTH-SD 45.5 % (39-53); RED BLOOD COUNT 3.86 M/uL (3.80-5.20)
[2016-10-25 04:28] LABS: CHLORIDE 102 mEq/L (99-109); POTASSIUM 3.7 mEq/L (3.7-5.4); SODIUM 138 mEq/L (136-147)
[2016-10-25 04:30] LABS: GLUCOSE 116 mg/dL (70-99)
[2016-10-25 04:31] LABS: ANION GAP 7 MEQ/L (2-14)
[2016-10-25 04:34] LABS: GFR ESTIMATE (CALCULATED) 56 mL/min/; UREA NITROGEN (BUN) 34 mg/dL (9-23)
[2016-10-25 13:42] LABS: BASE EXCESS 6.1 mEq/L (-3 to +3); CARBOXY HGB 1.7 % (0-5); METHEMOGLOBIN 1.1 % (0-1.5)
[2016-10-25 13:43] LABS: BICARBONATE 34.8 mEq/L (22-26); COMMENTS - BLOOD GASES A+C+; DEVICE NC; O2 FLOW 3 L/MIN; PCO2 74 mm Hg (35-45); PO2 92 mm Hg (80-100); SITE LR; TOTAL RESP RATE 31 resp/min; pH 7.28 (7.35-7.45)
[2016-10-25 17:15] LABS: BASE EXCESS 7.4 mEq/L (-3 to +3); BICARBONATE 34.1 mEq/L (22-26); CARBOXY HGB 1.6 % (0-5); METHEMOGLOBIN 1.5 % (0-1.5); PCO2 59 mm Hg (35-45); PO2 87 mm Hg (80-100); pH 7.37 (7.35-7.45)
[2016-10-25 17:16] LABS: COMMENTS - BLOOD GASES A+C+; DEVICE 840 MASK; FI02 30 %; MODE SPONT NIV; PEEP 5 CM/H20; PRES. SUPPORT 10 CM/H2O; SITE LR; TOTAL RESP RATE 16 resp/min
[2016-10-26] VITALS (25 sets, daily range): BP systolic 56–111; BP diastolic 46–80
[2016-10-26 00:16] LABS: BASE EXCESS 8.6 mEq/L (-3 to +3); BICARBONATE 34.7 mEq/L (22-26); CARBOXY HGB 1.9 % (0-5); COMMENTS - BLOOD GASES C+A+; DEVICE NIV; FI02 30 %; METHEMOGLOBIN 1.3 % (0-1.5); MODE SPONT; PCO2 56 mm Hg (35-45); PEEP 5 CM/H20; PO2 71 mm Hg (80-100); PRES. SUPPORT 10 CM/H2O; SITE LR; TOTAL RESP RATE 18 resp/min
[2016-10-26 05:14] LABS: BASE EXCESS 6.7 mEq/L (-3 to +3); BICARBONATE 32.7 mEq/L (22-26); CARBOXY HGB 1.6 % (0-5); COMMENTS - BLOOD GASES C+A+; DEVICE NIV; FI02 30 %; METHEMOGLOBIN 1.5 % (0-1.5); MODE SPONT; PCO2 54 mm Hg (35-45); PEEP 5 CM/H20; PO2 95 mm Hg (80-100); PRES. SUPPORT 15 CM/H2O; SITE LR; TOTAL RESP RATE 15 resp/min; pH 7.39 (7.35-7.45)
[2016-10-26 05:35] LABS: EOSINOPHIL (%) 2.4 % (0-5); EOSINOPHIL COUNT 0.3 K/uL (0-0.3); HEMATOCRIT 32.1 % (36.0-46.0); IMMATURE GRANULOCYTE (%) 1.2 % (0.0-0.7); IMMATURE GRANULOCYTE COUNT 0.1 K/uL; INSTRUMENT ABS NEUTROPHIL CT 7.8 K/uL; LYMPHOCYTE COUNT 0.9 K/uL (1.0-2.8); MCH 26.9 PG (29.0-34.0); MCHC 29.9 G/DL (30.0-36.0); MCV 89.9 FL (83-99); MEAN PLAT.VOLUME 8.9 uM^3 (9.5-12.4); MONOCYTE (%) 11.9 % (3-12); MONOCYTE COUNT 1.2 K/uL (0-0.8); NEUTROPHIL (%) 75.8 % (45-76); NEUTROPHIL COUNT 7.8 K/uL (1.8-6.4); PLATELET COUNT 245 K/uL (156-360); RBC DIS.WIDTH-CV 13.8 % (11.8-14.6); RBC DIS.WIDTH-SD 45.7 % (39-53); RED BLOOD COUNT 3.57 M/uL (3.80-5.20); WHITE BLOOD COUNT 10.3 K/uL (4.1-10.2)
[2016-10-26 06:24] LABS: ANION GAP 8 MEQ/L (2-14); CHLORIDE 101 MEQ/L (99-109); GFR ESTIMATE (CALCULATED) 50 mL/min/; GLUCOSE 94 mg/dL (70-99); POTASSIUM 3.6 MEQ/L (3.7-5.4); SAMPLE HEMOLYSIS CHECK 0; SAMPLE ICTERIC CHECK 0; SAMPLE LIPEMIA CHECK 0; SODIUM 140 MEQ/L (136-147); UREA NITROGEN (BUN) 36 mg/dL (9-23)
[2016-10-27] VITALS (18 sets, daily range): BP systolic 101–143; BP diastolic 55–103
[2016-10-27 08:14] LABS: EOSINOPHIL (%) 2.6 % (0-5); EOSINOPHIL COUNT 0.3 K/uL (0-0.3); HEMATOCRIT 33.6 % (36.0-46.0); IMMATURE GRANULOCYTE (%) 0.8 % (0.0-0.7); IMMATURE GRANULOCYTE COUNT 0.1 K/uL; INSTRUMENT ABS NEUTROPHIL CT 9.4 K/uL; LYMPHOCYTE COUNT 0.8 K/uL (1.0-2.8); MCH 27.2 PG (29.0-34.0); MCHC 29.8 G/DL (30.0-36.0); MCV 91.6 FL (83-99); MEAN PLAT.VOLUME 9.1 uM^3 (9.5-12.4); MONOCYTE (%) 12.6 % (3-12); MONOCYTE COUNT 1.5 K/uL (0-0.8); NEUTROPHIL (%) 77.5 % (45-76); NEUTROPHIL COUNT 9.4 K/uL (1.8-6.4); PLATELET COUNT 265 K/uL (156-360); RBC DIS.WIDTH-CV 13.8 % (11.8-14.6); RBC DIS.WIDTH-SD 46.9 % (39-53); RED BLOOD COUNT 3.67 M/uL (3.80-5.20); WHITE BLOOD COUNT 12.1 K/uL (4.1-10.2)
[2016-10-27 08:37] LABS: ANION GAP 9 MEQ/L (2-14); CHLORIDE 102 MEQ/L (99-109); GFR ESTIMATE (CALCULATED) 56 mL/min/; POTASSIUM 3.5 MEQ/L (3.7-5.4); SAMPLE HEMOLYSIS CHECK 0; SAMPLE ICTERIC CHECK 0; SAMPLE LIPEMIA CHECK 0; SODIUM 142 MEQ/L (136-147); UREA NITROGEN (BUN) 43 mg/dL (9-23)
[2016-10-27 08:38] LABS: GLUCOSE 146 mg/dL (70-99); MAGNESIUM 1.8 mg/dl (1.3-2.7)
[2016-10-28] VITALS (9 sets, daily range): BP systolic 88–114; BP diastolic 40–84
[2016-10-28 05:40] LABS: EOSINOPHIL (%) 2.6 % (0-5); EOSINOPHIL COUNT 0.3 K/uL (0-0.3); HEMATOCRIT 31.2 % (36.0-46.0); IMMATURE GRANULOCYTE (%) 0.9 % (0.0-0.7); IMMATURE GRANULOCYTE COUNT 0.1 K/uL; INSTRUMENT ABS NEUTROPHIL CT 8.9 K/uL; LYMPHOCYTE COUNT 0.9 K/uL (1.0-2.8); MCH 28.6 PG (29.0-34.0); MCHC 31.1 G/DL (30.0-36.0); MEAN PLAT.VOLUME 9.2 uM^3 (9.5-12.4); MONOCYTE (%) 12.9 % (3-12); MONOCYTE COUNT 1.5 K/uL (0-0.8); NEUTROPHIL (%) 75.6 % (45-76); NEUTROPHIL COUNT 8.9 K/uL (1.8-6.4); PLATELET COUNT 246 K/uL (156-360); RBC DIS.WIDTH-CV 13.8 % (11.8-14.6); RBC DIS.WIDTH-SD 46.8 % (39-53); RED BLOOD COUNT 3.39 M/uL (3.80-5.20); WHITE BLOOD COUNT 11.8 K/uL (4.1-10.2)
[2016-10-28 06:36] LABS: ANION GAP 6 MEQ/L (2-14); CHLORIDE 100 MEQ/L (99-109); GFR ESTIMATE (CALCULATED) 50 mL/min/; POTASSIUM 3.8 MEQ/L (3.7-5.4); SAMPLE HEMOLYSIS CHECK 0; SAMPLE ICTERIC CHECK 0; SAMPLE LIPEMIA CHECK 0; SODIUM 141 MEQ/L (136-147); UREA NITROGEN (BUN) 44 mg/dL (9-23)
[2016-10-28 06:37] LABS: GLUCOSE 96 mg/dL (70-99)
[2016-10-28 09:55] LABS: BASE EXCESS 12.3 mEq/L (-3 to +3); BICARBONATE 40.5 mEq/L (22-26); CARBOXY HGB 2.2 % (0-5); COMMENTS - BLOOD GASES +C; DEVICE NC; METHEMOGLOBIN 1.1 % (0-1.5); O2 FLOW 3 L/MIN; PCO2 75 mm Hg (35-45); PO2 65 mm Hg (80-100); SITE LR +A; TOTAL RESP RATE 24 resp/min; pH 7.34 (7.35-7.45)
[2016-10-28 12:18] LABS: BASE EXCESS 11.3 mEq/L (-3 to +3); BICARBONATE 38.5 mEq/L (22-26); CARBOXY HGB 2.1 % (0-5); COMMENTS - BLOOD GASES NAC+; METHEMOGLOBIN 1.3 % (0-1.5); PCO2 65 mm Hg (35-45); PO2 69 mm Hg (80-100); SITE LR; pH 7.38 (7.35-7.45)
[2016-10-28 12:19] LABS: CONTINUOUS POS AIRWAY PRESSURE 5 cm H2O; DEVICE BIPAP MASK 17/5; MODE BIPAP; TOTAL RESP RATE 22 resp/min
[2016-10-29] VITALS (7 sets, daily range): BP systolic 98–138; BP diastolic 53–125
[2016-10-29 06:14] LABS: EOSINOPHIL (%) 0.2 % (0-5); HEMATOCRIT 33.3 % (36.0-46.0); IMMATURE GRANULOCYTE (%) 1.1 % (0.0-0.7); IMMATURE GRANULOCYTE COUNT 0.1 K/uL; INSTRUMENT ABS NEUTROPHIL CT 12.2 K/uL; LYMPHOCYTE COUNT 0.4 K/uL (1.0-2.8); MCH 27.4 PG (29.0-34.0); MCHC 30.3 G/DL (30.0-36.0); MCV 90.2 FL (83-99); MEAN PLAT.VOLUME 9.8 uM^3 (9.5-12.4); MONOCYTE (%) 1.7 % (3-12); MONOCYTE COUNT 0.2 K/uL (0-0.8); NEUTROPHIL (%) 93.7 % (45-76); NEUTROPHIL COUNT 12.2 K/uL (1.8-6.4); PLATELET COUNT 268 K/uL (156-360); RBC DIS.WIDTH-CV 13.7 % (11.8-14.6); RED BLOOD COUNT 3.69 M/uL (3.80-5.20)
[2016-10-29 06:32] LABS: ANION GAP 8 MEQ/L (2-14); CHLORIDE 99 MEQ/L (99-109); GFR ESTIMATE (CALCULATED) 45 mL/min/; GLUCOSE 121 mg/dL (70-99); POTASSIUM 4.1 MEQ/L (3.7-5.4); SAMPLE HEMOLYSIS CHECK 1; SAMPLE ICTERIC CHECK 0; SAMPLE LIPEMIA CHECK 0; SODIUM 140 MEQ/L (136-147); UREA NITROGEN (BUN) 44 mg/dL (9-23)
[2016-10-29 12:17] LABS: BASE EXCESS 8.6 mEq/L (-3 to +3); BICARBONATE 34.4 mEq/L (22-26); CARBOXY HGB 1.7 % (0-5); METHEMOGLOBIN 1.3 % (0-1.5); pH 7.42 (7.35-7.45)
[2016-10-29 12:18] LABS: COMMENTS - BLOOD GASES +C; DEVICE BIPAP; O2 FLOW 8 L/MIN; PCO2 53 mm Hg (35-45); PO2 87 mm Hg (80-100); SITE LR +A
[2016-10-29 12:19] LABS: CONTINUOUS POS AIRWAY PRESSURE 5 cm H2O; MODE SPONT; PRES. SUPPORT 17 CM/H2O; TOTAL RESP RATE 19 resp/min
[2016-10-29 15:02] LABS: TYPE OF FLUID PLEURAL
[2016-10-29 15:28] LABS: BODY FLUID RBC'S 3000 /MM^3 (0-100); BODY FLUID WBC'S 681 /MM^3 (0-500)
[2016-10-29 16:30] LABS: BODY FLUID EOSINOPHILS 0 % (0-25); MONONUCLEAR WBC'S 12 %; POLYNUCLEAR WBC'S 88 % (0-25)
[2016-10-29 16:55] LABS: BODY FLUID LDH 81 IU/L; BODY FLUID PROTEIN < 3.0 G/DL
[2016-10-30] VITALS: BP 85/54
[2016-10-30 04:00] VITALS: BP 105/45
[2016-10-30 05:52] LABS: EOSINOPHIL (%) 0 % (0-5); HEMATOCRIT 31.6 % (36.0-46.0); IMMATURE GRANULOCYTE (%) 1.1 % (0.0-0.7); IMMATURE GRANULOCYTE COUNT 0.1 K/uL; INSTRUMENT ABS NEUTROPHIL CT 9.5 K/uL; LYMPHOCYTE COUNT 0.5 K/uL (1.0-2.8); MCH 26.9 PG (29.0-34.0); MCHC 29.7 G/DL (30.0-36.0); MCV 90.3 FL (83-99); MEAN PLAT.VOLUME 9.2 uM^3 (9.5-12.4); MONOCYTE (%) 8.1 % (3-12); MONOCYTE COUNT 0.9 K/uL (0-0.8); NEUTROPHIL (%) 86.6 % (45-76); NEUTROPHIL COUNT 9.5 K/uL (1.8-6.4); PLATELET COUNT 269 K/uL (156-360); RBC DIS.WIDTH-CV 13.8 % (11.8-14.6); RBC DIS.WIDTH-SD 45.1 % (39-53)
[2016-10-30 06:29] LABS: ANION GAP 5 MEQ/L (2-14); CHLORIDE 101 MEQ/L (99-109); GFR ESTIMATE (CALCULATED) 41 mL/min/; GLUCOSE 121 mg/dL (70-99); POTASSIUM 3.9 MEQ/L (3.7-5.4); SAMPLE HEMOLYSIS CHECK 2; SAMPLE ICTERIC CHECK 0; SAMPLE LIPEMIA CHECK 0; SODIUM 141 MEQ/L (136-147); UREA NITROGEN (BUN) 42 mg/dL (9-23)
[2016-10-30 08:00] VITALS: BP 114/71
[2016-10-30 12:00] VITALS: BP 102/73
[2016-10-30 13:12] LABS: PTT 34.7 SEC (25-37)
[2016-10-30 15:35] LABS: INTER. NORMALIZED RATIO 1.3; PROTHROMBIN TIME 14.6 SEC (10.2-12.9)
[2016-10-30 16:00] VITALS: BP 126/64
[2016-10-30 20:00] VITALS: BP 106/64
[2016-10-31] VITALS (10 sets, daily range): BP systolic 92–135; BP diastolic 59–102
[2016-10-31 05:40] LABS: EOSINOPHIL (%) 0 % (0-5); HEMATOCRIT 33.3 % (36.0-46.0); IMMATURE GRANULOCYTE COUNT 0.1 K/uL; INSTRUMENT ABS NEUTROPHIL CT 8.2 K/uL; INTER. NORMALIZED RATIO 1.3; LYMPHOCYTE COUNT 0.4 K/uL (1.0-2.8); MCH 26.7 PG (29.0-34.0); MCHC 29.7 G/DL (30.0-36.0); MCV 89.8 FL (83-99); MEAN PLAT.VOLUME 9.2 uM^3 (9.5-12.4); MONOCYTE (%) 4.4 % (3-12); MONOCYTE COUNT 0.4 K/uL (0-0.8); NEUTROPHIL (%) 90.5 % (45-76); NEUTROPHIL COUNT 8.2 K/uL (1.8-6.4); PLATELET COUNT 287 K/uL (156-360); PROTHROMBIN TIME 14.5 SEC (10.2-12.9); RBC DIS.WIDTH-CV 13.8 % (11.8-14.6); RBC DIS.WIDTH-SD 45.1 % (39-53); RED BLOOD COUNT 3.71 M/uL (3.80-5.20)
[2016-10-31 06:00] LABS: ANION GAP 11 MEQ/L (2-14); CHLORIDE 101 MEQ/L (99-109); GFR ESTIMATE (CALCULATED) 45 mL/min/; GLUCOSE 133 mg/dL (70-99); SAMPLE HEMOLYSIS CHECK 0; SAMPLE ICTERIC CHECK 0; SAMPLE LIPEMIA CHECK 0; SODIUM 143 MEQ/L (136-147); UREA NITROGEN (BUN) 48 mg/dL (9-23)
[2016-11-01] VITALS: BP 117/75
[2016-11-01 04:00] VITALS: BP 114/97
[2016-11-01 05:41] LABS: EOSINOPHIL (%) 0 % (0-5); HEMATOCRIT 33.6 % (36.0-46.0); IMMATURE GRANULOCYTE (%) 1.1 % (0.0-0.7); IMMATURE GRANULOCYTE COUNT 0.1 K/uL; INSTRUMENT ABS NEUTROPHIL CT 8.4 K/uL; LYMPHOCYTE COUNT 0.4 K/uL (1.0-2.8); MCH 28.5 PG (29.0-34.0); MCHC 31.5 G/DL (30.0-36.0); MCV 90.3 FL (83-99); MEAN PLAT.VOLUME 9.4 uM^3 (9.5-12.4); MONOCYTE (%) 8.8 % (3-12); MONOCYTE COUNT 0.9 K/uL (0-0.8); NEUTROPHIL (%) 85.9 % (45-76); NEUTROPHIL COUNT 8.4 K/uL (1.8-6.4); PLATELET COUNT 292 K/uL (156-360); RED BLOOD COUNT 3.72 M/uL (3.80-5.20); WHITE BLOOD COUNT 9.8 K/uL (4.1-10.2)
[2016-11-01 05:51] LABS: INTER. NORMALIZED RATIO 1.5; PROTHROMBIN TIME 16.3 SEC (10.2-12.9)
[2016-11-01 06:04] LABS: ANION GAP 10 MEQ/L (2-14); CHLORIDE 101 MEQ/L (99-109); GFR ESTIMATE (CALCULATED) 35 mL/min/; GLUCOSE 121 mg/dL (70-99); POTASSIUM 3.9 MEQ/L (3.7-5.4); SAMPLE HEMOLYSIS CHECK 0; SAMPLE ICTERIC CHECK 0; SAMPLE LIPEMIA CHECK 0; SODIUM 145 MEQ/L (136-147); UREA NITROGEN (BUN) 48 mg/dL (9-23)
[2016-11-01 08:00] VITALS: BP 113/84
[2016-11-01 12:00] VITALS: BP 156/91
[2016-11-01 16:00] VITALS: BP 136/83
[2016-11-01 20:00] VITALS: BP 128/94
[2016-11-02] VITALS: BP 141/83
[2016-11-02 04:00] VITALS: BP 126/88
[2016-11-02 05:07] LABS: EOSINOPHIL (%) 0.1 % (0-5); HEMATOCRIT 35.1 % (36.0-46.0); IMMATURE GRANULOCYTE COUNT 0.1 K/uL; INSTRUMENT ABS NEUTROPHIL CT 11.8 K/uL; LYMPHOCYTE COUNT 0.9 K/uL (1.0-2.8); MCHC 29.6 G/DL (30.0-36.0); MCV 91.2 FL (83-99); MEAN PLAT.VOLUME 9.1 uM^3 (9.5-12.4); MONOCYTE COUNT 1.4 K/uL (0-0.8); NEUTROPHIL (%) 82.4 % (45-76); NEUTROPHIL COUNT 11.8 K/uL (1.8-6.4); PLATELET COUNT 322 K/uL (156-360); RBC DIS.WIDTH-CV 14.1 % (11.8-14.6); RBC DIS.WIDTH-SD 47.1 % (39-53); RED BLOOD COUNT 3.85 M/uL (3.80-5.20); WHITE BLOOD COUNT 14.3 K/uL (4.1-10.2)
[2016-11-02 05:27] LABS: INTER. NORMALIZED RATIO 1.9; PROTHROMBIN TIME 21.7 SEC (10.2-12.9)
[2016-11-02 05:41] LABS: ANION GAP 10 MEQ/L (2-14); CHLORIDE 100 MEQ/L (99-109); GFR ESTIMATE (CALCULATED) 33 mL/min/; GLUCOSE 84 mg/dL (70-99); SAMPLE HEMOLYSIS CHECK 0; SAMPLE ICTERIC CHECK 0; SAMPLE LIPEMIA CHECK 0; SODIUM 144 MEQ/L (136-147); UREA NITROGEN (BUN) 48 mg/dL (9-23)
[2016-11-02 08:10] VITALS: BP 133/78
[2016-11-02 11:25] VITALS: BP 106/65
[2016-11-02 15:40] VITALS: BP 121/78
[2016-11-02 19:08] VITALS: BP 145/86
[2016-11-03] VITALS (21 sets, daily range): BP systolic 0–165; BP diastolic 0–93
[2016-11-03 04:20] LABS: EOSINOPHIL (%) 0.1 % (0-5); HEMATOCRIT 32.6 % (36.0-46.0); IMMATURE GRANULOCYTE COUNT 0.2 K/uL; INSTRUMENT ABS NEUTROPHIL CT 14.3 K/uL; MCH 27.4 PG (29.0-34.0); MCHC 30.1 G/DL (30.0-36.0); MCV 91.1 FL (83-99); MEAN PLAT.VOLUME 9.2 uM^3 (9.5-12.4); MONOCYTE (%) 7.5 % (3-12); MONOCYTE COUNT 1.3 K/uL (0-0.8); NEUTROPHIL (%) 85.3 % (45-76); NEUTROPHIL COUNT 14.3 K/uL (1.8-6.4); PLATELET COUNT 331 K/uL (156-360); RBC DIS.WIDTH-CV 14.1 % (11.8-14.6); RBC DIS.WIDTH-SD 46.9 % (39-53); RED BLOOD COUNT 3.58 M/uL (3.80-5.20); WHITE BLOOD COUNT 16.7 K/uL (4.1-10.2)
[2016-11-03 04:41] LABS: INTER. NORMALIZED RATIO 3.4; PROTHROMBIN TIME 38.9 SEC (10.2-12.9)
[2016-11-03 05:01] LABS: CHLORIDE 100 mEq/L (99-109); POTASSIUM 3.8 mEq/L (3.7-5.4); SODIUM 141 mEq/L (136-147)
[2016-11-03 05:02] LABS: MAGNESIUM 1.6 mg/dL (1.3-2.7)
[2016-11-03 05:04] LABS: GLUCOSE 125 mg/dL (70-99)
[2016-11-03 05:05] LABS: ANION GAP 12 MEQ/L (2-14)
[2016-11-03 05:06] LABS: TOTAL BILIRUBIN 0.3 mg/dL (0.0-1.0)
[2016-11-03 05:07] LABS: ALKALINE PHOSPHATASE 51 IU/L (3-129)
[2016-11-03 05:08] LABS: GFR ESTIMATE (CALCULATED) 35 mL/min/
[2016-11-03 05:09] LABS: UREA NITROGEN (BUN) 47 mg/dL (9-23)
[2016-11-03 05:18] LABS: BASE EXCESS 6.8 mEq/L (-3 to +3); BICARBONATE 35.1 mEq/L (22-26); CARBOXY HGB 1.7 % (0-5); METHEMOGLOBIN 1.6 % (0-1.5)
[2016-11-03 05:19] LABS: COMMENTS - BLOOD GASES A+C+; DEVICE HFNC; O2 FLOW 15 L/MIN; PCO2 73 mm Hg (35-45); PO2 63 mm Hg (80-100); SITE RR
[2016-11-03 05:20] LABS: pH 7.29 (7.35-7.45)
[2016-11-03 08:15] LABS: ALKALINE PHOSPHATASE 44 IU/L (3-129); ANION GAP 10 MEQ/L (2-14); CHLORIDE 101 MEQ/L (99-109); DIRECT BILIRUBIN 0.1 mg/dL (0.0-0.3); GFR ESTIMATE (CALCULATED) 35 mL/min/; GLUCOSE 123 mg/dL (70-99); POTASSIUM 4.1 MEQ/L (3.7-5.4); SAMPLE HEMOLYSIS CHECK 0; SAMPLE ICTERIC CHECK 0; SAMPLE LIPEMIA CHECK 0; SODIUM 142 MEQ/L (136-147); TOTAL BILIRUBIN 0.5 MG/DL (0.0-1.0); UREA NITROGEN (BUN) 46 mg/dL (9-23)
[2016-11-03 08:53] LABS: TROP-I INTERPRETATION NEGATIVE; TROPONIN-I 0.02 ng/mL (0.0-0.30)
[2016-11-03 08:54] LABS: BICARBONATE 33.7 mEq/L (22-26); CARBOXY HGB 1.4 % (0-5); METHEMOGLOBIN 1.3 % (0-1.5); PCO2 75 mm Hg (35-45)
[2016-11-03 08:55] LABS: COMMENTS - BLOOD GASES A+C+; DEVICE VENT; FI02 100 %; MODE NIV; PEEP 7 CM/H20; PO2 96 mm Hg (80-100); PRES. SUPPORT 12 CM/H2O; SITE RR; TOTAL RESP RATE 17 resp/min
[2016-11-03 08:56] LABS: pH 7.26 (7.35-7.45)
[2016-11-03 11:31] LABS: BICARBONATE 35.1 mEq/L (22-26); CARBOXY HGB 1.6 % (0-5); METHEMOGLOBIN 1.1 % (0-1.5); PO2 104 mm Hg (80-100)
[2016-11-03 13:46] LABS: BASE EXCESS 4.4 mEq/L (-3 to +3); BICARBONATE 30.9 mEq/L (22-26); CARBOXY HGB 1.4 % (0-5); METHEMOGLOBIN 1.3 % (0-1.5); PO2 99 mm Hg (80-100); pH 7.35 (7.35-7.45)
[2016-11-03 13:48] LABS: COMMENTS - BLOOD GASES A+C+; DEVICE VENT; FI02 80 %; MECHANICAL RATE 18 resp/min; MODE ACVC; PCO2 56 mm Hg (35-45); PEEP 5 CM/H20; SITE RR; TIDAL VOLUME 430 ML; TOTAL RESP RATE 18 resp/min
[2016-11-03 13:49] LABS: COMMENTS - BLOOD GASES A+C+; DEVICE VENT; FI02 100 %; MODE NIV SPONT; PCO2 82 mm Hg (35-45); SITE RR
[2016-11-03 13:50] LABS: PEEP 7 CM/H20; PRES. SUPPORT 14 CM/H2O; TOTAL RESP RATE 16 resp/min; pH 7.24 (7.35-7.45)
[2016-11-04] VITALS (24 sets, daily range): BP systolic 57–124; BP diastolic 41–91
[2016-11-04 06:25] LABS: EOSINOPHIL (%) 0 % (0-5); IMMATURE GRANULOCYTE (%) 0.8 % (0.0-0.7); IMMATURE GRANULOCYTE COUNT 0.1 K/uL; LYMPHOCYTE COUNT 0.4 K/uL (1.0-2.8); MCH 27.4 PG (29.0-34.0); MCHC 31.1 G/DL (30.0-36.0); MCV 87.9 FL (83-99); MEAN PLAT.VOLUME 9.5 uM^3 (9.5-12.4); MONOCYTE (%) 1.2 % (3-12); MONOCYTE COUNT 0.2 K/uL (0-0.8); NRBC (%) 0.1 /100 WBC (0-0); PLATELET COUNT 240 K/uL (156-360); RBC DIS.WIDTH-CV 14.2 % (11.8-14.6); RED BLOOD COUNT 3.07 M/uL (3.80-5.20); WHITE BLOOD COUNT 13.6 K/uL (4.1-10.2)
[2016-11-04 06:27] LABS: PROTHROMBIN TIME 58.8 SEC (10.2-12.9)
[2016-11-04 06:47] LABS: ANION GAP 14 MEQ/L (2-14); CHLORIDE 101 MEQ/L (99-109); GFR ESTIMATE (CALCULATED) 33 mL/min/; GLUCOSE 110 mg/dL (70-99); MAGNESIUM 2.3 mg/dl (1.3-2.7); SAMPLE HEMOLYSIS CHECK 0; SAMPLE ICTERIC CHECK 0; SAMPLE LIPEMIA CHECK 0; SODIUM 144 MEQ/L (136-147); UREA NITROGEN (BUN) 48 mg/dL (9-23)
[2016-11-05] VITALS (24 sets, daily range): BP systolic 111–159; BP diastolic 62–115
[2016-11-05 05:16] LABS: BASE EXCESS 10.2 mEq/L (-3 to +3); BICARBONATE 32.8 mEq/L (22-26); CARBOXY HGB 3.3 % (0-5); METHEMOGLOBIN 0.9 % (0-1.5); PCO2 35 mm Hg (35-45); PO2 52 mm Hg (80-100); SITE LR
[2016-11-05 05:17] LABS: COMMENTS - BLOOD GASES A+C+; DEVICE VENT; FI02 40 %; MECHANICAL RATE 18 resp/min; MODE AC VC; PEEP 5 CM/H20; TIDAL VOLUME 430 ML; TOTAL RESP RATE 18 resp/min
[2016-11-05 05:18] LABS: pH 7.58 (7.35-7.45)
[2016-11-05 05:34] LABS: EOSINOPHIL (%) 0 % (0-5); HEMATOCRIT 24.9 % (36.0-46.0); IMMATURE GRANULOCYTE (%) 1.6 % (0.0-0.7); IMMATURE GRANULOCYTE COUNT 0.2 K/uL; INSTRUMENT ABS NEUTROPHIL CT 9.5 K/uL; LYMPHOCYTE COUNT 0.4 K/uL (1.0-2.8); MCH 27.2 PG (29.0-34.0); MCHC 31.7 G/DL (30.0-36.0); MCV 85.9 FL (83-99); MEAN PLAT.VOLUME 9.6 uM^3 (9.5-12.4); MONOCYTE (%) 2.2 % (3-12); MONOCYTE COUNT 0.2 K/uL (0-0.8); NEUTROPHIL (%) 91.9 % (45-76); NEUTROPHIL COUNT 9.5 K/uL (1.8-6.4); NRBC (%) 0.4 /100 WBC (0-0); PLATELET COUNT 196 K/uL (156-360); RBC DIS.WIDTH-CV 14.5 % (11.8-14.6); RBC DIS.WIDTH-SD 45.1 % (39-53); WHITE BLOOD COUNT 10.3 K/uL (4.1-10.2)
[2016-11-05 05:47] LABS: PROTHROMBIN TIME 34.4 SEC (10.2-12.9)
[2016-11-05 05:55] LABS: ANION GAP 14 MEQ/L (2-14); CHLORIDE 102 MEQ/L (99-109); GFR ESTIMATE (CALCULATED) 33 mL/min/; GLUCOSE 136 mg/dL (70-99); POTASSIUM 3.3 MEQ/L (3.7-5.4); SAMPLE HEMOLYSIS CHECK 0; SAMPLE ICTERIC CHECK 0; SAMPLE LIPEMIA CHECK 0; SODIUM 146 MEQ/L (136-147); UREA NITROGEN (BUN) 48 mg/dL (9-23)
[2016-11-05 06:06] LABS: ALKALINE PHOSPHATASE 41 IU/L (3-129); ANION GAP 13 MEQ/L (2-14); CHLORIDE 101 MEQ/L (99-109); GFR ESTIMATE (CALCULATED) 33 mL/min/; GLUCOSE 142 mg/dL (70-99); POTASSIUM 3.3 MEQ/L (3.7-5.4); SAMPLE HEMOLYSIS CHECK 0; SAMPLE ICTERIC CHECK 0; SAMPLE LIPEMIA CHECK 0; SODIUM 145 MEQ/L (136-147); TOTAL BILIRUBIN 0.6 MG/DL (0.0-1.0); UREA NITROGEN (BUN) 49 mg/dL (9-23)
[2016-11-05 12:03] LABS: BASE EXCESS 9.4 mEq/L (-3 to +3); BICARBONATE 33.5 mEq/L (22-26); CARBOXY HGB 1.6 % (0-5); COMMENTS - BLOOD GASES C+; METHEMOGLOBIN 1.4 % (0-1.5); PCO2 43 mm Hg (35-45); PO2 97 mm Hg (80-100); SITE LR
[2016-11-05 12:04] LABS: DEVICE VENT; FI02 40 %; MECHANICAL RATE 12 resp/min; MODE AC; PEEP 5 CM/H20; TIDAL VOLUME 430 ML; TOTAL RESP RATE 12 resp/min
[2016-11-06] VITALS (24 sets, daily range): BP systolic 100–169; BP diastolic 63–102
[2016-11-06 05:19] LABS: INTER. NORMALIZED RATIO 2.3; PROTHROMBIN TIME 25.9 SEC (10.2-12.9)
[2016-11-06 05:45] LABS: EOSINOPHIL (%) 0 % (0-5); IMMATURE GRANULOCYTE (%) 2.3 % (0.0-0.7); IMMATURE GRANULOCYTE COUNT 0.2 K/uL; INSTRUMENT ABS NEUTROPHIL CT 5.9 K/uL; LYMPHOCYTE COUNT 0.4 K/uL (1.0-2.8); MCH 28.4 PG (29.0-34.0); MCHC 31.5 G/DL (30.0-36.0); MCV 90.3 FL (83-99); MEAN PLAT.VOLUME 9.9 uM^3 (9.5-12.4); MONOCYTE (%) 3.2 % (3-12); MONOCYTE COUNT 0.2 K/uL (0-0.8); NEUTROPHIL (%) 88.4 % (45-76); NEUTROPHIL COUNT 5.9 K/uL (1.8-6.4); NRBC (%) 0.8 /100 WBC (0-0); PLATELET COUNT 151 K/uL (156-360); RBC DIS.WIDTH-CV 14.8 % (11.8-14.6); RBC DIS.WIDTH-SD 47.5 % (39-53); RED BLOOD COUNT 2.99 M/uL (3.80-5.20); WHITE BLOOD COUNT 6.7 K/uL (4.1-10.2)
[2016-11-06 05:46] LABS: BASE EXCESS 11.5 mEq/L (-3 to +3); BICARBONATE 36.4 mEq/L (22-26); CARBOXY HGB 1.5 % (0-5); METHEMOGLOBIN 1.1 % (0-1.5); PO2 82 mm Hg (80-100); pH 7.47 (7.35-7.45)
[2016-11-06 05:47] LABS: DEVICE 980; FI02 40 %; MECHANICAL RATE 12 resp/min; MODE AC; PCO2 50 mm Hg (35-45); SITE LR; TIDAL VOLUME 430 ML; TOTAL RESP RATE 14 resp/min
[2016-11-06 05:48] LABS: PEEP 5 CM/H20
[2016-11-06 05:50] LABS: ANION GAP 17 MEQ/L (2-14); CHLORIDE 102 MEQ/L (99-109); GFR ESTIMATE (CALCULATED) 35 mL/min/; GLUCOSE 182 mg/dL (70-99); MAGNESIUM 1.9 mg/dl (1.3-2.7); POTASSIUM 3.3 MEQ/L (3.7-5.4); SAMPLE HEMOLYSIS CHECK 0; SAMPLE ICTERIC CHECK 0; SAMPLE LIPEMIA CHECK 0; SODIUM 148 MEQ/L (136-147); UREA NITROGEN (BUN) 48 mg/dL (9-23)
[2016-11-07] VITALS (24 sets, daily range): BP systolic 0–156; BP diastolic 0–101
[2016-11-07 06:09] LABS: INTER. NORMALIZED RATIO 2.4; PROTHROMBIN TIME 27.1 SEC (10.2-12.9)
[2016-11-07 11:37] LABS: ANION GAP 15 MEQ/L (2-14); CHLORIDE 105 MEQ/L (99-109); POTASSIUM 3.1 MEQ/L (3.7-5.4); SAMPLE HEMOLYSIS CHECK 0; SAMPLE ICTERIC CHECK 0; SAMPLE LIPEMIA CHECK 0; SODIUM 152 MEQ/L (136-147)
[2016-11-07 11:43] LABS: GFR ESTIMATE (CALCULATED) 41 mL/min/; GLUCOSE 135 mg/dL (70-99); UREA NITROGEN (BUN) 49 mg/dL (9-23)
[2016-11-07 14:42] LABS: BASE EXCESS 13.1 mEq/L (-3 to +3); BICARBONATE 38.7 mEq/L (22-26); METHEMOGLOBIN 1.8 % (0-1.5); PO2 85 mm Hg (80-100); pH 7.44 (7.35-7.45)
[2016-11-07 14:43] LABS: COMMENTS - BLOOD GASES C+; DEVICE VENT; FI02 30 %; MODE TC; PCO2 57 mm Hg (35-45); PEEP 5 CM/H20; SITE LR; TOTAL RESP RATE 12 resp/min
[2016-11-08] VITALS (21 sets, daily range): BP systolic 104–155; BP diastolic 65–104
[2016-11-08 07:05] LABS: ANION GAP 12 MEQ/L (2-14); CHLORIDE 104 MEQ/L (99-109); GFR ESTIMATE (CALCULATED) 41 mL/min/; GLUCOSE 130 mg/dL (70-99); POTASSIUM 3.3 MEQ/L (3.7-5.4); SAMPLE HEMOLYSIS CHECK 0; SAMPLE ICTERIC CHECK 0; SAMPLE LIPEMIA CHECK 0; SODIUM 152 MEQ/L (136-147); UREA NITROGEN (BUN) 54 mg/dL (9-23)
[2016-11-08 07:14] LABS: EOSINOPHIL (%) 0 % (0-5); HEMATOCRIT 26.2 % (36.0-46.0); IMMATURE GRANULOCYTE (%) 1.7 % (0.0-0.7); IMMATURE GRANULOCYTE COUNT 0.2 K/uL; INSTRUMENT ABS NEUTROPHIL CT 9.8 K/uL; LYMPHOCYTE COUNT 0.3 K/uL (1.0-2.8); MCH 28.1 PG (29.0-34.0); MCHC 30.5 G/DL (30.0-36.0); MCV 91.9 FL (83-99); MONOCYTE (%) 4.4 % (3-12); MONOCYTE COUNT 0.5 K/uL (0-0.8); NEUTROPHIL (%) 90.8 % (45-76); NEUTROPHIL COUNT 9.8 K/uL (1.8-6.4); NRBC (%) 0.9 /100 WBC (0-0); PLATELET COUNT 164 K/uL (156-360); RBC DIS.WIDTH-CV 14.7 % (11.8-14.6); RED BLOOD COUNT 2.85 M/uL (3.80-5.20); WHITE BLOOD COUNT 10.8 K/uL (4.1-10.2)
[2016-11-08 07:16] LABS: INTER. NORMALIZED RATIO 2.1; PROTHROMBIN TIME 24.3 SEC (10.2-12.9)
[2016-11-08 18:55] LABS: C DIFF TOXIN NEGATIVE (NEGATIVE)
[2016-11-08 19:02] LABS: PROBE CHECK PASS; SPECIMEN PROCESSING CONTROL PASS
[2016-11-09] VITALS (22 sets, daily range): BP systolic 101–161; BP diastolic 70–107
[2016-11-09 07:33] LABS: EOSINOPHIL (%) 0 % (0-5); HEMATOCRIT 25.2 % (36.0-46.0); IMMATURE GRANULOCYTE (%) 2.1 % (0.0-0.7); IMMATURE GRANULOCYTE COUNT 0.3 K/uL; INSTRUMENT ABS NEUTROPHIL CT 12.1 K/uL; LYMPHOCYTE COUNT 0.6 K/uL (1.0-2.8); MCH 27.1 PG (29.0-34.0); MCHC 29.8 G/DL (30.0-36.0); MEAN PLAT.VOLUME 10.2 uM^3 (9.5-12.4); MONOCYTE (%) 7.5 % (3-12); MONOCYTE COUNT 1.1 K/uL (0-0.8); NEUTROPHIL (%) 86.1 % (45-76); NEUTROPHIL COUNT 12.1 K/uL (1.8-6.4); NRBC (%) 0.8 /100 WBC (0-0); PLATELET COUNT 136 K/uL (156-360); RBC DIS.WIDTH-CV 14.6 % (11.8-14.6); RBC DIS.WIDTH-SD 47.8 % (39-53); RED BLOOD COUNT 2.77 M/uL (3.80-5.20); WHITE BLOOD COUNT 14.1 K/uL (4.1-10.2)
[2016-11-09 07:41] LABS: INTER. NORMALIZED RATIO 1.8; PROTHROMBIN TIME 20.6 SEC (10.2-12.9)
[2016-11-09 07:43] LABS: ANION GAP 14 MEQ/L (2-14); CHLORIDE 104 MEQ/L (99-109); GFR ESTIMATE (CALCULATED) 38 mL/min/; GLUCOSE 117 mg/dL (70-99); POTASSIUM 3.5 MEQ/L (3.7-5.4); SAMPLE HEMOLYSIS CHECK 0; SAMPLE ICTERIC CHECK 0; SAMPLE LIPEMIA CHECK 0; SODIUM 152 MEQ/L (136-147); UREA NITROGEN (BUN) 58 mg/dL (9-23)
[2016-11-10] VITALS (19 sets, daily range): BP systolic 0–149; BP diastolic 0–105
[2016-11-10 06:58] LABS: EOSINOPHIL (%) 0 % (0-5); HEMATOCRIT 23.1 % (36.0-46.0); IMMATURE GRANULOCYTE (%) 2.8 % (0.0-0.7); IMMATURE GRANULOCYTE COUNT 0.5 K/uL; INSTRUMENT ABS NEUTROPHIL CT 14.8 K/uL; LYMPHOCYTE COUNT 0.8 K/uL (1.0-2.8); MCH 28.8 PG (29.0-34.0); MCV 89.9 FL (83-99); MEAN PLAT.VOLUME 11.1 uM^3 (9.5-12.4); MONOCYTE (%) 8.4 % (3-12); MONOCYTE COUNT 1.5 K/uL (0-0.8); NEUTROPHIL (%) 84.3 % (45-76); NEUTROPHIL COUNT 14.8 K/uL (1.8-6.4); NRBC (%) 0.6 /100 WBC (0-0); PLATELET COUNT 119 K/uL (156-360); RBC DIS.WIDTH-CV 14.7 % (11.8-14.6); RED BLOOD COUNT 2.57 M/uL (3.80-5.20); WHITE BLOOD COUNT 17.6 K/uL (4.1-10.2)
[2016-11-10 07:09] LABS: INTER. NORMALIZED RATIO 2.6; PROTHROMBIN TIME 29.5 SEC (10.2-12.9)
[2016-11-10 07:40] LABS: ANION GAP 14 MEQ/L (2-14); CHLORIDE 101 MEQ/L (99-109); GFR ESTIMATE (CALCULATED) 45 mL/min/; GLUCOSE 131 mg/dL (70-99); POTASSIUM 3.5 MEQ/L (3.7-5.4); SAMPLE HEMOLYSIS CHECK 1; SAMPLE ICTERIC CHECK 0; SAMPLE LIPEMIA CHECK 0; UREA NITROGEN (BUN) 52 mg/dL (9-23)
[2016-11-10 07:45] LABS: MAGNESIUM 1.6 mg/dl (1.3-2.7); SODIUM 144 MEQ/L (136-147)
[2016-11-10 12:10] LABS: BASE EXCESS 12.8 mEq/L (-3 to +3); BICARBONATE 38.2 mEq/L (22-26); CARBOXY HGB 2.5 % (0-5); COMMENTS - BLOOD GASES A+C+; METHEMOGLOBIN 1.2 % (0-1.5); O2 FLOW 2 L/MIN; PCO2 55 mm Hg (35-45); PO2 87 mm Hg (80-100); SITE LR; pH 7.45 (7.35-7.45)
[2016-11-10 12:11] LABS: DEVICE NC; TOTAL RESP RATE 18 resp/min
[2016-11-10 16:18] LABS: EOSINOPHIL (%) 0 % (0-5); HEMATOCRIT 23.2 % (36.0-46.0); IMMATURE GRANULOCYTE (%) 3.4 % (0.0-0.7); IMMATURE GRANULOCYTE COUNT 0.8 K/uL; INSTRUMENT ABS NEUTROPHIL CT 19.3 K/uL; LYMPHOCYTE COUNT 0.8 K/uL (1.0-2.8); MCH 29.2 PG (29.0-34.0); MCHC 33.6 G/DL (30.0-36.0); MCV 86.9 FL (83-99); MEAN PLAT.VOLUME 10.8 uM^3 (9.5-12.4); MONOCYTE (%) 5.7 % (3-12); MONOCYTE COUNT 1.3 K/uL (0-0.8); NEUTROPHIL (%) 87.3 % (45-76); NEUTROPHIL COUNT 19.3 K/uL (1.8-6.4); NRBC (%) 0.5 /100 WBC (0-0); PLATELET COUNT 115 K/uL (156-360); RBC DIS.WIDTH-CV 14.5 % (11.8-14.6); RBC DIS.WIDTH-SD 44.7 % (39-53); RED BLOOD COUNT 2.67 M/uL (3.80-5.20); WHITE BLOOD COUNT 22.1 K/uL (4.1-10.2)
[2016-11-11] VITALS (14 sets, daily range): BP systolic 60–148; BP diastolic 45–98
[2016-11-11 05:04] LABS: EOSINOPHIL (%) 0.1 % (0-5); HEMATOCRIT 22.4 % (36.0-46.0); IMM.RETIC FRACTION 10.3 % (3-19); IMMATURE GRANULOCYTE (%) 1.6 % (0.0-0.7); IMMATURE GRANULOCYTE COUNT 0.3 K/uL; INSTRUMENT ABS NEUTROPHIL CT 14.7 K/uL; LYMPHOCYTE COUNT 1.4 K/uL (1.0-2.8); MCH 27.7 PG (29.0-34.0); MCHC 31.7 G/DL (30.0-36.0); MCV 87.5 FL (83-99); MEAN PLAT.VOLUME 10.8 uM^3 (9.5-12.4); MONOCYTE (%) 10.2 % (3-12); MONOCYTE COUNT 1.9 K/uL (0-0.8); NEUTROPHIL (%) 80.5 % (45-76); NEUTROPHIL COUNT 14.7 K/uL (1.8-6.4); NRBC (%) 0.5 /100 WBC (0-0); PLATELET COUNT 111 K/uL (156-360); RBC DIS.WIDTH-CV 14.3 % (11.8-14.6); RBC DIS.WIDTH-SD 44.6 % (39-53); RED BLOOD COUNT 2.56 M/uL (3.80-5.20); RETIC HGB EQUIVALENT 33.7 (28-36); WHITE BLOOD COUNT 18.3 K/uL (4.1-10.2)
[2016-11-11 05:14] LABS: CHLORIDE 102 mEq/L (99-109); POTASSIUM 3.2 mEq/L (3.7-5.4); SODIUM 145 mEq/L (136-147)
[2016-11-11 05:15] LABS: GLUCOSE 108 mg/dL (70-99)
[2016-11-11 05:17] LABS: ANION GAP 13 MEQ/L (2-14)
[2016-11-11 05:18] LABS: INTER. NORMALIZED RATIO 3.6
[2016-11-11 05:19] LABS: GFR ESTIMATE (CALCULATED) 50 mL/min/
[2016-11-11 05:20] LABS: UREA NITROGEN (BUN) 50 mg/dL (9-23)
[2016-11-11 06:11] LABS: SAMPLE HEMOLYSIS CHECK 0; SAMPLE ICTERIC CHECK 0; SAMPLE LIPEMIA CHECK 0
[2016-11-11 06:13] LABS: PROTHROMBIN TIME 42.1 SEC (10.2-12.9)
[2016-11-11 06:28] LABS: PREALBUMIN 25.5 mg/dL (10-40)
[2016-11-11 07:06] LABS: ERTH.SED.RATE 5 MM/HR (0-30)
[2016-11-11 07:42] LABS: FERRITIN 121 NG/ML (10-291)
[2016-11-11 10:02] LABS: GLOBULINS 2.3 G/DL (2.3-3.5)
[2016-11-11 15:34] LABS: POC NON-PRINT COM 1 ND
[2016-11-11 16:04] LABS: HEMATOCRIT 27.8 % (36.0-46.0); MCV 88.5 FL (83-99)
[2016-11-11 23:19] LABS: HEMATOCRIT 25.9 % (36.0-46.0)
[2016-11-12 00:23] VITALS: BP 110/70
[2016-11-12 04:12] VITALS: BP 138/85
[2016-11-12 07:58] VITALS: BP 143/68
[2016-11-12 08:53] LABS: EOSINOPHIL (%) 0.7 % (0-5); EOSINOPHIL COUNT 0.2 K/uL (0-0.3); HEMATOCRIT 26.8 % (36.0-46.0); IMMATURE GRANULOCYTE (%) 2.3 % (0.0-0.7); IMMATURE GRANULOCYTE COUNT 0.5 K/uL; INSTRUMENT ABS NEUTROPHIL CT 17.5 K/uL; LYMPHOCYTE COUNT 1.7 K/uL (1.0-2.8); MCH 28.9 PG (29.0-34.0); MCHC 32.8 G/DL (30.0-36.0); MCV 87.9 FL (83-99); MEAN PLAT.VOLUME 10.9 uM^3 (9.5-12.4); MONOCYTE (%) 8.2 % (3-12); MONOCYTE COUNT 1.8 K/uL (0-0.8); NEUTROPHIL (%) 81.1 % (45-76); NEUTROPHIL COUNT 17.5 K/uL (1.8-6.4); NRBC (%) 0.3 /100 WBC (0-0); PLATELET COUNT 127 K/uL (156-360); RBC DIS.WIDTH-CV 14.7 % (11.8-14.6); RBC DIS.WIDTH-SD 46.7 % (39-53); RED BLOOD COUNT 3.05 M/uL (3.80-5.20); WHITE BLOOD COUNT 21.6 K/uL (4.1-10.2)
[2016-11-12 09:25] LABS: ANION GAP 11 MEQ/L (2-14); CHLORIDE 100 MEQ/L (99-109); GFR ESTIMATE (CALCULATED) 56 mL/min/; GLUCOSE 108 mg/dL (70-99); POTASSIUM 3.6 MEQ/L (3.7-5.4); SAMPLE HEMOLYSIS CHECK 0; SAMPLE ICTERIC CHECK 0; SAMPLE LIPEMIA CHECK 0; SODIUM 145 MEQ/L (136-147); UREA NITROGEN (BUN) 44 mg/dL (9-23)
[2016-11-12 10:43] LABS: INTER. NORMALIZED RATIO 2.7; PROTHROMBIN TIME 30.7 SEC (10.2-12.9)
[2016-11-12 11:39] VITALS: BP 154/72
[2016-11-12 15:24] LABS: ALBUMIN 3.14 G/DL (3.6-4.9); ALBUMIN PERCENT 57.1 % (49.3-67.1); ALPHA-1 GLOBULIN 0.39 G/DL (0.15-0.40); ALPHA-1 PERCENT 7.1 % (2.1-5.5); ALPHA-2 GLOBULIN 0.68 G/DL (0.45-0.85); ALPHA-2 PERCENT 12.4 % (6.2-11.6); BETA PERCENT 13.7 % (8.9-15.8); GAMMA PERCENT 9.7 % (8.6-18.6); INTERPRETATION: Essentially normal.
[2016-11-12 15:50] VITALS: BP 118/58
[2016-11-12 20:11] VITALS: BP 143/63
[2016-11-13 00:23] VITALS: BP 121/87
[2016-11-13 04:22] VITALS: BP 121/81
[2016-11-13 07:09] LABS: EOSINOPHIL (%) 0.6 % (0-5); EOSINOPHIL COUNT 0.1 K/uL (0-0.3); HEMATOCRIT 27.2 % (36.0-46.0); IMMATURE GRANULOCYTE (%) 2.6 % (0.0-0.7); IMMATURE GRANULOCYTE COUNT 0.6 K/uL; INSTRUMENT ABS NEUTROPHIL CT 16.7 K/uL; LYMPHOCYTE COUNT 1.6 K/uL (1.0-2.8); MCH 28.4 PG (29.0-34.0); MCV 88.9 FL (83-99); MEAN PLAT.VOLUME 10.6 uM^3 (9.5-12.4); MONOCYTE COUNT 1.9 K/uL (0-0.8); NEUTROPHIL (%) 80.1 % (45-76); NEUTROPHIL COUNT 16.7 K/uL (1.8-6.4); NRBC (%) 0.2 /100 WBC (0-0); PLATELET COUNT 158 K/uL (156-360); RBC DIS.WIDTH-CV 14.6 % (11.8-14.6); RBC DIS.WIDTH-SD 46.5 % (39-53); RED BLOOD COUNT 3.06 M/uL (3.80-5.20); WHITE BLOOD COUNT 20.8 K/uL (4.1-10.2)
[2016-11-13 07:10] LABS: INTER. NORMALIZED RATIO 1.9; PROTHROMBIN TIME 21.7 SEC (10.2-12.9)
[2016-11-13 07:32] LABS: ANION GAP 12 MEQ/L (2-14); CHLORIDE 104 MEQ/L (99-109); GFR ESTIMATE (CALCULATED) 50 mL/min/; GLUCOSE 94 mg/dL (70-99); SAMPLE HEMOLYSIS CHECK 0; SAMPLE ICTERIC CHECK 0; SAMPLE LIPEMIA CHECK 0; SODIUM 148 MEQ/L (136-147); UREA NITROGEN (BUN) 46 mg/dL (9-23)
[2016-11-13 07:40] VITALS: BP 130/74
[2016-11-13] MEDS ORDERED: PREDNISONE20 MG PO (07:48)
[2016-11-13 11:24] VITALS: BP 126/60
[2016-11-13] MEDS ORDERED: FUROSEMIDE40 MG PO (12:26)
[2016-11-13] MEDS ORDERED: COUMADIN1 MG PO (12:30)
== END 2016-11-13 19:28 | DRG 166 ==
LOC: EME 19:35 → 4WEST 22:02 → EDOF 22:02 → ENRESERV 22:03 → 4WEST 23:44 → ENRESERV 11-02 07:14 → 4EAST 11-02 08:04 → 4WEST 11-03 07:11 → ENRESERV 11-03 07:12 → 4WEST 11-03 07:12 → ENRESERV 11-11 11:59 → 2EAST 11-11 18:21
PROVIDERS: Emergency Medicine; Hospitalist; Internal Medicine; Internal Medicine Critical Care Medicine; Internal Medicine Hematology & Oncology; Internal Medicine Nephrology; Specialist
PROC: 0BH17EZ Insertion of Endotracheal Airway into Trachea, Via Natural or Artificial Opening (ICD-10-PCS; principal; 2016-10-19)
PROC: 5A1955Z Respiratory Ventilation, Greater than 96 Consecutive Hours (ICD-10-PCS; principal; 2016-10-19)
PROC: 5A09357 Assistance with Respiratory Ventilation, Less than 24 Consecutive Hours, Continuous Positive Airway Pressure (ICD-10-PCS; 2016-10-28)
PROC: 5A09358 Assistance with Respiratory Ventilation, Less than 24 Consecutive Hours, Intermittent Positive Airway Pressure (ICD-10-PCS; 2016-10-28)
PROC: 0W9B3ZZ Drainage of Left Pleural Cavity, Percutaneous Approach (ICD-10-PCS; 2016-10-29)
PROC: 5A1955Z Respiratory Ventilation, Greater than 96 Consecutive Hours (ICD-10-PCS; 2016-11-03)
PROC: 0BH17EZ Insertion of Endotracheal Airway into Trachea, Via Natural or Artificial Opening (ICD-10-PCS; 2016-11-03)
PROC: 0BBF8ZX Excision of Right Lower Lung Lobe, Via Natural or Artificial Opening Endoscopic, Diagnostic (ICD-10-PCS; 2016-11-06)
PROC: 30233N1 Transfusion of Nonautologous Red Blood Cells into Peripheral Vein, Percutaneous Approach (ICD-10-PCS; 2016-11-11)
DX: J96.21 Acute and chronic respiratory failure with hypoxia (principal); J96.22 Acute and chronic respiratory failure with hypercapnia; J44.1 Chronic obstructive pulmonary disease with (acute) exacerbation; A41.9 Sepsis, unspecified organism; R65.21 Severe sepsis with septic shock; J44.0 Chronic obstructive pulmonary disease with (acute) lower respiratory infection; J18.9 Pneumonia, unspecified organism; N17.0 Acute kidney failure with tubular necrosis; E87.0 Hyperosmolality and hypernatremia; T50.1X5A Adverse effect of loop [high-ceiling] diuretics, initial encounter; E87.6 Hypokalemia; D69.6 Thrombocytopenia, unspecified; R04.2 Hemoptysis; R68.0 Hypothermia, not associated with low environmental temperature; E87.2 Acidosis; D62 Acute posthemorrhagic anemia; E46 Unspecified protein-calorie malnutrition; G93.40 Encephalopathy, unspecified; J90 Pleural effusion, not elsewhere classified; I13.0 Hypertensive heart and chronic kidney disease with heart failure and stage 1 through stage 4 chronic kidney disease, or unspecified chronic kidney disease; I50.9 Heart failure, unspecified; N18.9 Chronic kidney disease, unspecified; K21.9 Gastro-esophageal reflux disease without esophagitis; F41.9 Anxiety disorder, unspecified; F32.9 Major depressive disorder, single episode, unspecified; E78.5 Hyperlipidemia, unspecified; E03.9 Hypothyroidism, unspecified; E66.2 Morbid (severe) obesity with alveolar hypoventilation; F03.90 Unspecified dementia, unspecified severity, without behavioral disturbance, psychotic disturbance, mood disturbance, and anxiety; G40.909 Epilepsy, unspecified, not intractable, without status epilepticus; G89.29 Other chronic pain; M06.9 Rheumatoid arthritis, unspecified; I25.10 Atherosclerotic heart disease of native coronary artery without angina pectoris; I27.2 Other secondary pulmonary hypertension; I48.2 Chronic atrial fibrillation; M26.609 Unspecified temporomandibular joint disorder, unspecified side; I71.2 Thoracic aortic aneurysm, without rupture; Z95.5 Presence of coronary angioplasty implant and graft; Z86.73 Personal history of transient ischemic attack (TIA), and cerebral infarction without residual deficits; I25.2 Old myocardial infarction; Z22.322 Carrier or suspected carrier of Methicillin resistant Staphylococcus aureus; Z68.41 Body mass index [BMI] 40.0-44.9, adult; Z87.891 Personal history of nicotine dependence; Z99.81 Dependence on supplemental oxygen; Z79.02 Long term (current) use of antithrombotics/antiplatelets; Z79.01 Long term (current) use of anticoagulants; Z88.1 Allergy status to other antibiotic agents; Z98.1 Arthrodesis status
CPT/HCPCS: 31500; 36600; 70110; 70450; 71010; 71020; 74230; 76604; 76770; 76937; 76942; 80048; 80048 91; 80053; 80069; 80076; 80150 90; 80202; 81003; 82272; 82607; 82728; 82746; 82803; 82945; 82948; 83605; 83615 91; 83735; 83880; 83883 90; 84100; 84134; 84157; 84165; 84484; 85014; 85018; 85025; 85025 91; 85027; 85045; 85610; 85651; 85730; 86140; 86334; 86850; 86900; 86901; 86920; 87040; 87070; 87075; 87077; 87086; 87106; 87116; 87186; 87205; 87206; 87493; 87641; 88108; 88305; 89051; 92526 GN; 92610 GN; 92611 GN; 93005; 93306; 94002; 94003; 94640; 94640 76; 94660; 94667; 94668; 94760; 94799; 99202; 99281; 99285; C1753; J0278; J0456; J0692; J1335; J1450; J1650; J1940; J2250; J2405; J2543; J2704; J2920; J2930; J3370; J3475; J3480; J7030; J7040; J7050; J7070; J7512; P9016; P9047; S0028

== ENCOUNTER 2016-12-17 22:15 | Inpatient (IN) | payer OTHER, MEDICARE ==
[~2016-12-17] VITALS: Ht 165.1 cm; Wt 103.7 kg
[~2016-12-17 22:15] MED LIST changes: +8 HOUR PAIN RE650 M1 PO; +COUMADIN1 MG PO; +FUROSEMIDE40 MG PO; +IMDUR30 MG PO; +KEPPRA250 MG PO; +LASIX40 MG PO
[2016-12-17 23:34] LABS: MCH 29.8 PG (29.0-34.0); MCHC 32.4 G/DL (30.0-36.0); MCV 91.9 FL (83-99); MEAN PLAT.VOLUME 9.1 uM^3 (9.5-12.4); PLATELET COUNT 228 K/uL (156-360); RBC DIS.WIDTH-CV 17.8 % (11.8-14.6); RBC DIS.WIDTH-SD 59.2 % (39-53); RED BLOOD COUNT 3.59 M/uL (3.80-5.20); WHITE BLOOD COUNT 10.4 K/uL (4.1-10.2)
[2016-12-17 23:39] LABS: INTER. NORMALIZED RATIO 1.8; PROTHROMBIN TIME 20.6 SEC (10.2-12.9)
[2016-12-17 23:42] LABS: PTT 28.7 SEC (25-37)
[2016-12-17 23:45] LABS: CHLORIDE 97 mEq/L (99-109); POTASSIUM 3.8 mEq/L (3.7-5.4); SODIUM 139 mEq/L (136-147)
[2016-12-17 23:47] LABS: GLUCOSE 85 mg/dL (70-99)
[2016-12-17 23:48] LABS: ANION GAP 11 MEQ/L (2-14)
[2016-12-17 23:49] LABS: TOTAL BILIRUBIN 0.8 mg/dL (0.0-1.0)
[2016-12-17 23:50] LABS: ALKALINE PHOSPHATASE 123 IU/L (3-129)
[2016-12-17 23:51] LABS: GFR ESTIMATE (CALCULATED) > 59 mL/min/
[2016-12-17 23:52] LABS: UREA NITROGEN (BUN) 28 mg/dL (9-23)
[2016-12-17 23:54] LABS: LIPASE 23 U/L (1.0-51.0)
[2016-12-18 00:01] LABS: TROP-I INTERPRETATION NEGATIVE; TROPONIN-I 0.01 ng/mL (0.0-0.30)
[2016-12-18] MEDS ORDERED: BACTRIM,SEPT1 TABLET PO (01:49)
[2016-12-18] MEDS ORDERED: ELIQUIS5 MG PO (01:50)
[2016-12-18] MEDS ORDERED: ADVAIR HFA120 INHALA IH (01:52)
[2016-12-18] MEDS ORDERED: POTASSIUM CHLO20 ME1 PO (01:55)
[2016-12-18] MEDS ORDERED: RANITIDINE HCL150 MG PO (01:56)
[2016-12-18 05:47] VITALS: BP 100/58
[2016-12-18 11:31] LABS: BASE EXCESS 5.6 mEq/L (-3 to +3); BICARBONATE 29.8 mEq/L (22-26); CARBOXY HGB 2.2 % (0-5); COMMENTS - BLOOD GASES A+C+; DEVICE NC; METHEMOGLOBIN 1.3 % (0-1.5); O2 FLOW 2 L/MIN; PCO2 41 mm Hg (35-45); PO2 100 mm Hg (80-100); SITE RR; TOTAL RESP RATE 14 resp/min; pH 7.47 (7.35-7.45)
[2016-12-18 14:56] LABS: ADD MIUA? YES; BILIRUBIN NEGATIVE; BLOOD SMALL; GLUCOSE (STRIP) NEGATIVE; KETONES NEGATIVE; LEUKOCYTES LARGE; NITRITE POSITIVE; PROTEIN (STRIP) NEGATIVE; SPECIFIC GRAVITY 1.012 (1.000-1.030); UROBILINOGEN 0.2 MG/DL (0.2-1.0)
[2016-12-18 15:10] LABS: COLOR YELLOW ((YELLOW))
[2016-12-18 15:40] LABS: WHITE BLOOD CELLS TNTC /HPF (0-5)
[2016-12-18 15:42] LABS: EPITHELIAL CELLS RARE /HPF
[2016-12-18 15:43] LABS: BACTERIA 3+ /HPF; MUCUS NONE SEEN /LPF; UCUL ADDED? YES
[2016-12-18 21:45] VITALS: BP 113/79
[2016-12-19 00:36] VITALS: BP 123/81
[2016-12-19 03:34] LABS: EOSINOPHIL (%) 0.5 % (0-5); EOSINOPHIL COUNT 0.1 K/uL (0-0.3); HEMATOCRIT 28.1 % (36.0-46.0); IMMATURE GRANULOCYTE (%) 1.8 % (0.0-0.7); IMMATURE GRANULOCYTE COUNT 0.2 K/uL; INSTRUMENT ABS NEUTROPHIL CT 7.3 K/uL; LYMPHOCYTE COUNT 1.9 K/uL (1.0-2.8); MCH 29.5 PG (29.0-34.0); MCV 92.1 FL (83-99); MEAN PLAT.VOLUME 9.3 uM^3 (9.5-12.4); MONOCYTE (%) 7.1 % (3-12); MONOCYTE COUNT 0.7 K/uL (0-0.8); NEUTROPHIL (%) 71.8 % (45-76); NEUTROPHIL COUNT 7.3 K/uL (1.8-6.4); PLATELET COUNT 179 K/uL (156-360); RBC DIS.WIDTH-CV 17.7 % (11.8-14.6); RED BLOOD COUNT 3.05 M/uL (3.80-5.20); WHITE BLOOD COUNT 10.2 K/uL (4.1-10.2)
[2016-12-19 03:59] LABS: CHLORIDE 101 mEq/L (99-109); POTASSIUM 4.1 mEq/L (3.7-5.4); SODIUM 136 mEq/L (136-147)
[2016-12-19 04:01] LABS: GLUCOSE 95 mg/dL (70-99)
[2016-12-19 04:02] LABS: ANION GAP 10 MEQ/L (2-14)
[2016-12-19 04:04] LABS: ALKALINE PHOSPHATASE 95 IU/L (3-129); TOTAL BILIRUBIN 0.6 mg/dL (0.0-1.0)
[2016-12-19 04:05] LABS: GFR ESTIMATE (CALCULATED) > 59 mL/min/
[2016-12-19 04:06] LABS: UREA NITROGEN (BUN) 21 mg/dL (9-23)
[2016-12-19 07:28] VITALS: BP 102/47
[2016-12-19 10:55] LABS: HBSG INDEX 0.15; HPCA INDEX 0.45
[2016-12-19 10:56] LABS: ANTI-HEPATITIS A VIRUS (IGM) Nonreactive; HAV INDEX 0.29
[2016-12-19 10:57] LABS: ANTI-HEPATITIS B CORE (IGM) Nonreactive; HBC IgM INDEX 0.09
[2016-12-19 16:05] LABS: INTER. NORMALIZED RATIO 1.5; PROTHROMBIN TIME 16.7 SEC (10.2-12.9)
[2016-12-19 16:07] LABS: PTT 86.3 SEC (25-37)
[2016-12-19 21:10] VITALS: BP 115/62
[2016-12-19 23:13] VITALS: BP 98/54
[2016-12-20 06:06] LABS: EOSINOPHIL (%) 1.4 % (0-5); EOSINOPHIL COUNT 0.1 K/uL (0-0.3); IMMATURE GRANULOCYTE (%) 2.2 % (0.0-0.7); IMMATURE GRANULOCYTE COUNT 0.2 K/uL; INSTRUMENT ABS NEUTROPHIL CT 6.3 K/uL; LYMPHOCYTE COUNT 1.6 K/uL (1.0-2.8); MCH 29.1 PG (29.0-34.0); MCHC 31.3 G/DL (30.0-36.0); MEAN PLAT.VOLUME 9.1 uM^3 (9.5-12.4); MONOCYTE (%) 8.8 % (3-12); MONOCYTE COUNT 0.8 K/uL (0-0.8); NEUTROPHIL (%) 69.9 % (45-76); NEUTROPHIL COUNT 6.3 K/uL (1.8-6.4); PLATELET COUNT 152 K/uL (156-360); RBC DIS.WIDTH-CV 17.9 % (11.8-14.6); RBC DIS.WIDTH-SD 60.4 % (39-53); RED BLOOD COUNT 2.58 M/uL (3.80-5.20)
[2016-12-20 06:12] LABS: INTER. NORMALIZED RATIO 1.4; PROTHROMBIN TIME 15.5 SEC (10.2-12.9)
[2016-12-20 06:20] LABS: PTT 49.3 SEC (25-37)
[2016-12-20 07:20] VITALS: BP 91/56
[2016-12-20 07:34] LABS: ANION GAP 9 MEQ/L (2-14); CHLORIDE 107 MEQ/L (99-109); GFR ESTIMATE (CALCULATED) > 59 mL/min/; GLUCOSE 96 mg/dL (70-99); POTASSIUM 4.5 MEQ/L (3.7-5.4); SAMPLE HEMOLYSIS CHECK 0; SAMPLE ICTERIC CHECK 0; SAMPLE LIPEMIA CHECK 0; SODIUM 138 MEQ/L (136-147); UREA NITROGEN (BUN) 15 mg/dL (9-23)
[2016-12-20 15:00] VITALS: BP 101/55
[2016-12-20 23:25] VITALS: BP 134/88
[2016-12-21 06:32] LABS: HEMATOCRIT 27.5 % (36.0-46.0); MCH 29.5 PG (29.0-34.0); MCHC 31.3 G/DL (30.0-36.0); MCV 94.2 FL (83-99); PLATELET COUNT 171 K/uL (156-360); RBC DIS.WIDTH-CV 18.2 % (11.8-14.6); RBC DIS.WIDTH-SD 62.5 % (39-53); RED BLOOD COUNT 2.92 M/uL (3.80-5.20); WHITE BLOOD COUNT 8.8 K/uL (4.1-10.2)
[2016-12-21 07:34] LABS: ANION GAP 9 MEQ/L (2-14); CHLORIDE 106 MEQ/L (99-109); GFR ESTIMATE (CALCULATED) > 59 mL/min/; GLUCOSE 74 mg/dL (70-99); POTASSIUM 4.7 MEQ/L (3.7-5.4); SAMPLE HEMOLYSIS CHECK 0; SAMPLE ICTERIC CHECK 0; SAMPLE LIPEMIA CHECK 0; SODIUM 139 MEQ/L (136-147); UREA NITROGEN (BUN) 10 mg/dL (9-23)
[2016-12-21 09:00] VITALS: BP 118/57
[2016-12-21 09:16] LABS: RETICULOCYTE COUNT 3.5 % (0.5-1.8)
[2016-12-21 09:25] LABS: IRON 88 MCG/DL (35-150)
[2016-12-21 09:42] LABS: FERRITIN 155 NG/ML (10-291)
[2016-12-21 16:00] VITALS: BP 97/56
[2016-12-21 20:51] LABS: INTERNAL CONTROL VALID? YES
[2016-12-21 23:37] VITALS: BP 144/92
[2016-12-22 05:56] LABS: EOSINOPHIL COUNT 0.2 K/uL (0-0.3); HEMATOCRIT 26.4 % (36.0-46.0); IMMATURE GRANULOCYTE (%) 2.3 % (0.0-0.7); IMMATURE GRANULOCYTE COUNT 0.2 K/uL; INSTRUMENT ABS NEUTROPHIL CT 5.3 K/uL; LYMPHOCYTE COUNT 1.9 K/uL (1.0-2.8); MCHC 31.8 G/DL (30.0-36.0); MCV 94.3 FL (83-99); MEAN PLAT.VOLUME 9.2 uM^3 (9.5-12.4); MONOCYTE (%) 11.7 % (3-12); NEUTROPHIL COUNT 5.3 K/uL (1.8-6.4); PLATELET COUNT 160 K/uL (156-360); RBC DIS.WIDTH-CV 18.6 % (11.8-14.6); RBC DIS.WIDTH-SD 63.8 % (39-53); WHITE BLOOD COUNT 8.6 K/uL (4.1-10.2)
[2016-12-22 07:37] VITALS: BP 91/40
[2016-12-22 07:46] LABS: ALKALINE PHOSPHATASE 86 IU/L (3-129); ANION GAP 9 MEQ/L (2-14); CHLORIDE 105 MEQ/L (99-109); GFR ESTIMATE (CALCULATED) 56 mL/min/; GLUCOSE 85 mg/dL (70-99); POTASSIUM 4.5 MEQ/L (3.7-5.4); SAMPLE HEMOLYSIS CHECK 0; SAMPLE ICTERIC CHECK 0; SAMPLE LIPEMIA CHECK 0; SODIUM 139 MEQ/L (136-147); TOTAL BILIRUBIN 0.6 MG/DL (0.0-1.0); UREA NITROGEN (BUN) 11 mg/dL (9-23)
[2016-12-22 10:02] VITALS: BP 110/76
[2016-12-22 15:30] VITALS: BP 87/53
[2016-12-22 23:16] VITALS: BP 151/55
[2016-12-23 08:26] VITALS: BP 105/65
[2016-12-23 13:11] LABS: HEMATOCRIT 26.9 % (36.0-46.0); MCV 93.4 FL (83-99)
[2016-12-23 16:05] VITALS: BP 110/66
[2016-12-23 22:24] VITALS: BP 100/60
[2016-12-24 00:53] VITALS: BP 118/78
[2016-12-24 06:25] LABS: EOSINOPHIL (%) 1.6 % (0-5); EOSINOPHIL COUNT 0.2 K/uL (0-0.3); IMMATURE GRANULOCYTE (%) 2.7 % (0.0-0.7); IMMATURE GRANULOCYTE COUNT 0.3 K/uL; INSTRUMENT ABS NEUTROPHIL CT 7.8 K/uL; LYMPHOCYTE COUNT 2.3 K/uL (1.0-2.8); MCHC 32.3 G/DL (30.0-36.0); MCV 92.9 FL (83-99); MEAN PLAT.VOLUME 8.8 uM^3 (9.5-12.4); MONOCYTE (%) 9.9 % (3-12); MONOCYTE COUNT 1.2 K/uL (0-0.8); NEUTROPHIL (%) 66.3 % (45-76); NEUTROPHIL COUNT 7.8 K/uL (1.8-6.4); NRBC (%) 0.2 /100 WBC (0-0); PLATELET COUNT 193 K/uL (156-360); RBC DIS.WIDTH-CV 18.8 % (11.8-14.6); RBC DIS.WIDTH-SD 63.5 % (39-53); WHITE BLOOD COUNT 11.8 K/uL (4.1-10.2)
[2016-12-24 07:03] LABS: ALKALINE PHOSPHATASE 73 IU/L (3-129); ANION GAP 9 MEQ/L (2-14); CHLORIDE 100 MEQ/L (99-109); GFR ESTIMATE (CALCULATED) 50 mL/min/; GLUCOSE 95 mg/dL (70-99); POTASSIUM 5.2 MEQ/L (3.7-5.4); SAMPLE HEMOLYSIS CHECK 0; SAMPLE ICTERIC CHECK 0; SAMPLE LIPEMIA CHECK 0; SODIUM 134 MEQ/L (136-147); TOTAL BILIRUBIN 0.5 MG/DL (0.0-1.0); UREA NITROGEN (BUN) 14 mg/dL (9-23)
[2016-12-24 07:05] VITALS: BP 106/50
[2016-12-24 16:46] VITALS: BP 109/56
[2016-12-24 20:24] VITALS: BP 102/82
[2016-12-24 23:32] VITALS: BP 122/52
[2016-12-24 23:38] VITALS: BP 118/69
[2016-12-25] VITALS (10 sets, daily range): BP systolic 104–128; BP diastolic 45–74
[2016-12-25 06:18] LABS: EOSINOPHIL (%) 2.3 % (0-5); EOSINOPHIL COUNT 0.2 K/uL (0-0.3); HEMATOCRIT 25.3 % (36.0-46.0); IMMATURE GRANULOCYTE (%) 1.9 % (0.0-0.7); IMMATURE GRANULOCYTE COUNT 0.2 K/uL; INSTRUMENT ABS NEUTROPHIL CT 6.6 K/uL; LYMPHOCYTE COUNT 1.9 K/uL (1.0-2.8); MCH 30.2 PG (29.0-34.0); MCV 94.4 FL (83-99); MEAN PLAT.VOLUME 9.1 uM^3 (9.5-12.4); NEUTROPHIL (%) 66.2 % (45-76); NEUTROPHIL COUNT 6.6 K/uL (1.8-6.4); PLATELET COUNT 202 K/uL (156-360); RBC DIS.WIDTH-CV 18.7 % (11.8-14.6); RBC DIS.WIDTH-SD 64.5 % (39-53); RED BLOOD COUNT 2.68 M/uL (3.80-5.20)
[2016-12-25 06:43] LABS: HDL CHOLESTEROL 44 MG/DL (Desirable>=50); LDL CHOLESTEROL 56 mg/dL (Desirable<100); NON-HDL CHOLESTEROL 75 mg/dL (Desirable<160); TOTAL CHOLESTEROL 119 mg/dL (Desirable<200); TRIGLYCERIDES 95 MG/DL (Normal: <150)
[2016-12-26 03:48] LABS: BASOPHIL COUNT 0.1 K/uL (0-0.1); EOSINOPHIL (%) 1.8 % (0-5); EOSINOPHIL COUNT 0.2 K/uL (0-0.3); HEMATOCRIT 28.3 % (36.0-46.0); IMMATURE GRANULOCYTE (%) 2.4 % (0.0-0.7); IMMATURE GRANULOCYTE COUNT 0.3 K/uL; INSTRUMENT ABS NEUTROPHIL CT 8.1 K/uL; LYMPHOCYTE COUNT 2.4 K/uL (1.0-2.8); MCH 30.2 PG (29.0-34.0); MCHC 32.5 G/DL (30.0-36.0); MCV 92.8 FL (83-99); MEAN PLAT.VOLUME 8.7 uM^3 (9.5-12.4); MONOCYTE (%) 10.3 % (3-12); MONOCYTE COUNT 1.3 K/uL (0-0.8); NEUTROPHIL (%) 65.4 % (45-76); NEUTROPHIL COUNT 8.1 K/uL (1.8-6.4); NRBC (%) 0.2 /100 WBC (0-0); PLATELET COUNT 208 K/uL (156-360); RBC DIS.WIDTH-CV 18.1 % (11.8-14.6); RED BLOOD COUNT 3.05 M/uL (3.80-5.20); WHITE BLOOD COUNT 12.3 K/uL (4.1-10.2)
[2016-12-26 03:56] LABS: CHLORIDE 103 mEq/L (99-109); POTASSIUM 4.7 mEq/L (3.7-5.4); SODIUM 133 mEq/L (136-147)
[2016-12-26 03:58] LABS: GLUCOSE 100 mg/dL (70-99)
[2016-12-26 03:59] LABS: ANION GAP 7 MEQ/L (2-14)
[2016-12-26 04:00] LABS: TOTAL BILIRUBIN 0.7 mg/dL (0.0-1.0)
[2016-12-26 04:01] LABS: ALKALINE PHOSPHATASE 68 IU/L (3-129)
[2016-12-26 04:02] LABS: GFR ESTIMATE (CALCULATED) > 59 mL/min/
[2016-12-26 04:03] LABS: UREA NITROGEN (BUN) 18 mg/dL (9-23)
[2016-12-26 04:14] VITALS: BP 118/56
[2016-12-26 07:26] VITALS: BP 119/64
[2016-12-26 11:30] VITALS: BP 116/60
[2016-12-26 15:34] VITALS: BP 98/62
[2016-12-26 21:30] VITALS: BP 112/51
[2016-12-27] VITALS: BP 108/57
[2016-12-27 05:50] LABS: BASOPHIL COUNT 0.1 K/uL (0-0.1); EOSINOPHIL (%) 2.6 % (0-5); EOSINOPHIL COUNT 0.3 K/uL (0-0.3); HEMATOCRIT 29.3 % (36.0-46.0); IMMATURE GRANULOCYTE (%) 3.5 % (0.0-0.7); IMMATURE GRANULOCYTE COUNT 0.4 K/uL; INSTRUMENT ABS NEUTROPHIL CT 7.5 K/uL; LYMPHOCYTE COUNT 2.3 K/uL (1.0-2.8); MCH 29.4 PG (29.0-34.0); MCHC 31.1 G/DL (30.0-36.0); MCV 94.8 FL (83-99); MEAN PLAT.VOLUME 8.8 uM^3 (9.5-12.4); MONOCYTE (%) 10.6 % (3-12); MONOCYTE COUNT 1.3 K/uL (0-0.8); NEUTROPHIL COUNT 7.5 K/uL (1.8-6.4); NRBC (%) 0.2 /100 WBC (0-0); PLATELET COUNT 223 K/uL (156-360); RBC DIS.WIDTH-SD 61.3 % (39-53); RED BLOOD COUNT 3.09 M/uL (3.80-5.20); WHITE BLOOD COUNT 11.9 K/uL (4.1-10.2)
[2016-12-27 06:23] LABS: ANION GAP 7 MEQ/L (2-14); CHLORIDE 102 MEQ/L (99-109); GFR ESTIMATE (CALCULATED) 45 mL/min/; GLUCOSE 87 mg/dL (70-99); POTASSIUM 4.9 MEQ/L (3.7-5.4); SAMPLE HEMOLYSIS CHECK 0; SAMPLE ICTERIC CHECK 0; SAMPLE LIPEMIA CHECK 0; SODIUM 134 MEQ/L (136-147); UREA NITROGEN (BUN) 19 mg/dL (9-23)
[2016-12-27 08:00] VITALS: BP 110/68
[2016-12-27 20:25] VITALS: BP 116/68
[2016-12-28 01:47] VITALS: BP 124/61
[2016-12-28 06:15] LABS: BASOPHIL COUNT 0.1 K/uL (0-0.1); EOSINOPHIL (%) 2.1 % (0-5); EOSINOPHIL COUNT 0.2 K/uL (0-0.3); HEMATOCRIT 28.5 % (36.0-46.0); IMMATURE GRANULOCYTE (%) 1.9 % (0.0-0.7); IMMATURE GRANULOCYTE COUNT 0.2 K/uL; INSTRUMENT ABS NEUTROPHIL CT 7.7 K/uL; LYMPHOCYTE COUNT 1.9 K/uL (1.0-2.8); MCH 29.7 PG (29.0-34.0); MCHC 31.2 G/DL (30.0-36.0); MEAN PLAT.VOLUME 8.6 uM^3 (9.5-12.4); MONOCYTE (%) 9.9 % (3-12); MONOCYTE COUNT 1.1 K/uL (0-0.8); NEUTROPHIL COUNT 7.7 K/uL (1.8-6.4); PLATELET COUNT 220 K/uL (156-360); RBC DIS.WIDTH-CV 17.8 % (11.8-14.6); RBC DIS.WIDTH-SD 62.1 % (39-53); WHITE BLOOD COUNT 11.2 K/uL (4.1-10.2)
[2016-12-28 06:22] VITALS: BP 122/58
[2016-12-28 06:52] LABS: ALKALINE PHOSPHATASE 68 IU/L (3-129); ANION GAP 8 MEQ/L (2-14); CHLORIDE 100 MEQ/L (99-109); GFR ESTIMATE (CALCULATED) > 59 mL/min/; GLUCOSE 80 mg/dL (70-99); SAMPLE HEMOLYSIS CHECK 0; SAMPLE ICTERIC CHECK 0; SAMPLE LIPEMIA CHECK 0; SODIUM 132 MEQ/L (136-147); TOTAL BILIRUBIN 0.6 MG/DL (0.0-1.0); UREA NITROGEN (BUN) 15 mg/dL (9-23)
[2016-12-28 07:04] VITALS: BP 98/57
[2016-12-28 10:40] VITALS: BP 121/57
[2016-12-28 12:46] LABS: INTER. NORMALIZED RATIO 1.2; PROTHROMBIN TIME 13.8 SEC (10.2-12.9)
[2016-12-28 12:49] LABS: PTT 69.2 SEC (25-37)
[2016-12-28 15:21] VITALS: BP 128/54
[2016-12-28 20:02] VITALS: BP 139/58
[2016-12-29] VITALS (7 sets, daily range): BP systolic 96–152; BP diastolic 52–69
[2016-12-29 05:44] LABS: BASOPHIL COUNT 0.1 K/uL (0-0.1); EOSINOPHIL (%) 2.5 % (0-5); EOSINOPHIL COUNT 0.3 K/uL (0-0.3); HEMATOCRIT 28.9 % (36.0-46.0); IMMATURE GRANULOCYTE (%) 3.9 % (0.0-0.7); IMMATURE GRANULOCYTE COUNT 0.4 K/uL; INSTRUMENT ABS NEUTROPHIL CT 6.7 K/uL; LYMPHOCYTE COUNT 2.6 K/uL (1.0-2.8); MCH 29.5 PG (29.0-34.0); MCHC 31.1 G/DL (30.0-36.0); MCV 94.8 FL (83-99); MEAN PLAT.VOLUME 8.6 uM^3 (9.5-12.4); MONOCYTE (%) 10.9 % (3-12); MONOCYTE COUNT 1.2 K/uL (0-0.8); NEUTROPHIL (%) 59.5 % (45-76); NEUTROPHIL COUNT 6.7 K/uL (1.8-6.4); NRBC (%) 0.2 /100 WBC (0-0); PLATELET COUNT 227 K/uL (156-360); RBC DIS.WIDTH-CV 17.7 % (11.8-14.6); RBC DIS.WIDTH-SD 61.3 % (39-53); RED BLOOD COUNT 3.05 M/uL (3.80-5.20); WHITE BLOOD COUNT 11.2 K/uL (4.1-10.2)
[2016-12-29 07:02] LABS: ANION GAP 10 MEQ/L (2-14); CHLORIDE 101 MEQ/L (99-109); GFR ESTIMATE (CALCULATED) > 59 mL/min/; GLUCOSE 90 mg/dL (70-99); POTASSIUM 4.5 MEQ/L (3.7-5.4); SAMPLE HEMOLYSIS CHECK 0; SAMPLE ICTERIC CHECK 0; SAMPLE LIPEMIA CHECK 0; SODIUM 132 MEQ/L (136-147); UREA NITROGEN (BUN) 17 mg/dL (9-23)
[2016-12-30 04:54] VITALS: BP 149/62
[2016-12-30 08:00] VITALS: BP 110/80
[2016-12-30 12:42] VITALS: BP 100/69
[2016-12-30 16:46] VITALS: BP 130/70
[2016-12-30 19:56] VITALS: BP 153/74
[2016-12-31 00:06] VITALS: BP 164/86
[2016-12-31 05:52] LABS: HEMATOCRIT 27.6 % (36.0-46.0); MCH 29.6 PG (29.0-34.0); MCHC 31.2 G/DL (30.0-36.0); MCV 94.8 FL (83-99); MEAN PLAT.VOLUME 8.8 uM^3 (9.5-12.4); NRBC (%) 0.3 /100 WBC (0-0); PLATELET COUNT 251 K/uL (156-360); RBC DIS.WIDTH-CV 17.5 % (11.8-14.6); RED BLOOD COUNT 2.91 M/uL (3.80-5.20); WHITE BLOOD COUNT 10.2 K/uL (4.1-10.2)
[2016-12-31 07:14] VITALS: BP 149/58
[2016-12-31 07:18] LABS: ABS NEUTROPHIL COUNT 6.9; ANISOCYTOSIS 1+; ATYPICAL LYMPHOCYTE 0.9 %; BAND NEUTROPHILS 2.6 % (0-8.0); BASOPHILS 2.6 %; EOSINOPHIL ABS CT 0.3; EOSINOPHILS 2.6 % (0-5.0); INSTRUMENT ABS NEUTROPHIL CT 5.6 K/uL; LYMPHOCYTES 19.3 % (15.0-45.0); MYELOCYTES 0.9 %; PLAT.SUFFICIENCY ADEQUATE; POIKILOCYTOSIS 1+; POLYCHROMASIA 1+; SEG.NEUTROPHILS 64.9 % (46.0-76.0); SMUDGE CELLS 1.8
[2016-12-31] MEDS ORDERED: LOVENOX100 MG/1 M SC (13:32)
[2016-12-31] MEDS ORDERED: LOPRESSOR50 MG PO (13:39)
[2016-12-31] MEDS ORDERED: NATURAL BALANCE15 M1 BOTH EYES (13:41)
[2016-12-31] MEDS ORDERED: CYANOCOBALAM1000 MCG PO (13:42)
[2016-12-31] MEDS ORDERED: FOLIC ACID1 MG PO (13:42)
[2016-12-31] MEDS ORDERED: BISAC-EVAC10 MG PR (13:43)
[2016-12-31] MEDS ORDERED: TRAMADOL HCL50 MG PO (13:44)
[2016-12-31 16:13] VITALS: BP 134/70
== END 2016-12-31 16:56 | DRG 252 ==
LOC: EME → EDBD 22:15 → 5EAST 12-18 03:21 → EDOF 12-18 03:21 → ENRESERV 12-18 03:26 → 5EAST 12-18 04:52
PROVIDERS: Emergency Medicine; Family Medicine; Hospitalist; Student in an Organized Health Care Education/Training Program
PROC: 047K3ZZ Dilation of Right Femoral Artery, Percutaneous Approach (ICD-10-PCS; principal; 2016-12-27)
PROC: 0LBN0ZZ Excision of Right Lower Leg Tendon, Open Approach (ICD-10-PCS; 2016-12-28)
DX: I82.401 Acute embolism and thrombosis of unspecified deep veins of right lower extremity (principal); J96.21 Acute and chronic respiratory failure with hypoxia; J96.22 Acute and chronic respiratory failure with hypercapnia; I96 Gangrene, not elsewhere classified; E66.2 Morbid (severe) obesity with alveolar hypoventilation; L97.919 Non-pressure chronic ulcer of unspecified part of right lower leg with unspecified severity; L89.159 Pressure ulcer of sacral region, unspecified stage; J44.9 Chronic obstructive pulmonary disease, unspecified; L89.622 Pressure ulcer of left heel, stage 2; I50.9 Heart failure, unspecified; I82.449 Acute embolism and thrombosis of unspecified tibial vein; I11.0 Hypertensive heart disease with heart failure; I71.2 Thoracic aortic aneurysm, without rupture; F03.90 Unspecified dementia, unspecified severity, without behavioral disturbance, psychotic disturbance, mood disturbance, and anxiety; I25.10 Atherosclerotic heart disease of native coronary artery without angina pectoris; I48.2 Chronic atrial fibrillation; I99.8 Other disorder of circulatory system; M06.9 Rheumatoid arthritis, unspecified; F41.9 Anxiety disorder, unspecified; F32.9 Major depressive disorder, single episode, unspecified; I70.201 Unspecified atherosclerosis of native arteries of extremities, right leg; D64.9 Anemia, unspecified; G40.909 Epilepsy, unspecified, not intractable, without status epilepticus; G47.33 Obstructive sleep apnea (adult) (pediatric); E03.9 Hypothyroidism, unspecified; M79.604 Pain in right leg; I25.2 Old myocardial infarction; E78.5 Hyperlipidemia, unspecified; Z86.73 Personal history of transient ischemic attack (TIA), and cerebral infarction without residual deficits; Z68.38 Body mass index [BMI] 38.0-38.9, adult; Z95.5 Presence of coronary angioplasty implant and graft; K59.00 Constipation, unspecified; K21.9 Gastro-esophageal reflux disease without esophagitis; E87.6 Hypokalemia; Z79.899 Other long term (current) drug therapy; Z79.01 Long term (current) use of anticoagulants
CPT/HCPCS: 36600; 70450; 71010; 71275; 76705; 80048; 80053; 80061; 80069; 80074; 81003; 82272; 82607; 82728; 82746; 82803; 83540; 83605; 83690; 84466; 84484; 85014; 85018; 85025; 85027; 85045; 85610; 85730; 86850; 86900; 86901; 86920; 87040; 87086; 87506; 93005; 93926; 93971; 94640 76; 94760; 94799; 99202; 99281; 99285; A6260; C1725; C1755; C1760; C1769; C1887; C1894; J0690; J1160; J1200; J1644; J1650; J2250; J3010; J7030; P9016

== ENCOUNTER 2017-01-13 15:54 | Inpatient (IN) | payer OTHER, MEDICARE ==
[~2017-01-13] VITALS: Ht 170.2 cm; Wt 94.7 kg
[~2017-01-13 15:54] MED LIST changes: +BISAC-EVAC10 MG PR; +CYANOCOBALAM1000 MCG PO; +FOLIC ACID1 MG PO; +LOPRESSOR50 MG PO; +LOVENOX100 MG/1 M SC; +NATURAL BALANCE15 M1 BOTH EYES; +POTASSIUM CHLO20 ME1 PO; +RANITIDINE HCL150 MG PO; +TRAMADOL HCL50 MG PO
[2017-01-13 16:27] LABS: BASOPHIL COUNT 0.1 K/uL (0-0.1); EOSINOPHIL (%) 0.6 % (0-5); EOSINOPHIL COUNT 0.1 K/uL (0-0.3); HEMATOCRIT 36.2 % (36.0-46.0); IMMATURE GRANULOCYTE (%) 2.2 % (0.0-0.7); IMMATURE GRANULOCYTE COUNT 0.3 K/uL; LYMPHOCYTE COUNT 2.8 K/uL (1.0-2.8); MCH 29.8 PG (29.0-34.0); MCHC 31.8 G/DL (30.0-36.0); MCV 93.8 FL (83-99); MEAN PLAT.VOLUME 8.7 uM^3 (9.5-12.4); MONOCYTE (%) 8.7 % (3-12); MONOCYTE COUNT 1.4 K/uL (0-0.8); NEUTROPHIL (%) 70.2 % (45-76); PLATELET COUNT 378 K/uL (156-360); RBC DIS.WIDTH-CV 15.7 % (11.8-14.6); RBC DIS.WIDTH-SD 53.9 % (39-53); RED BLOOD COUNT 3.86 M/uL (3.80-5.20); WHITE BLOOD COUNT 15.7 K/uL (4.1-10.2)
[2017-01-13 16:29] LABS: INTER. NORMALIZED RATIO 1.2; PROTHROMBIN TIME 14.1 SEC (10.2-12.9)
[2017-01-13 16:34] LABS: CHLORIDE 99 mEq/L (99-109); POTASSIUM 4.8 mEq/L (3.7-5.4); SODIUM 134 mEq/L (136-147)
[2017-01-13 16:36] LABS: GLUCOSE 107 mg/dL (70-99)
[2017-01-13 16:37] LABS: ANION GAP 9 MEQ/L (2-14)
[2017-01-13 16:38] LABS: TOTAL BILIRUBIN 0.4 mg/dL (0.0-1.0)
[2017-01-13 16:40] LABS: ALKALINE PHOSPHATASE 85 IU/L (3-129); GFR ESTIMATE (CALCULATED) 56 mL/min/
[2017-01-13 16:41] LABS: UREA NITROGEN (BUN) 18 mg/dL (9-23)
[2017-01-13 16:46] LABS: TROP-I INTERPRETATION NEGATIVE; TROPONIN-I < 0.01 ng/mL (0.0-0.30)
[2017-01-13 16:51] LABS: PTT 39.8 SEC (25-37)
[2017-01-13] MEDS ORDERED: FOLIC ACID1 MG PO (20:22)
[2017-01-13] MEDS ORDERED: CYANOCOBALAM1000 MCG PO (20:22)
[2017-01-13] MEDS ORDERED: FUROSEMIDE40 MG PO (20:22)
[2017-01-13] MEDS ORDERED: LOVENOX100 MG/1 M SC (20:24)
[2017-01-13] MEDS ORDERED: LIDOCARE1 EACH TP (20:24)
[2017-01-13] MEDS ORDERED: LOPRESSOR50 MG PO (20:25)
[2017-01-13] MEDS ORDERED: TRAMADOL HCL50 MG PO (20:26)
[2017-01-13] MEDS ORDERED: DULCOLAX10 MG PR (20:27)
[2017-01-13 21:06] VITALS: BP 112/55
[2017-01-13 21:14] VITALS: BP 112/70
[2017-01-14 03:00] VITALS: BP 112/68
[2017-01-14 06:17] LABS: MCH 30.5 PG (29.0-34.0); MCHC 32.2 G/DL (30.0-36.0); MCV 94.7 FL (83-99); MEAN PLAT.VOLUME 8.8 uM^3 (9.5-12.4); PLATELET COUNT 305 K/uL (156-360); RBC DIS.WIDTH-CV 15.9 % (11.8-14.6); RBC DIS.WIDTH-SD 54.9 % (39-53); RED BLOOD COUNT 3.38 M/uL (3.80-5.20)
[2017-01-14 06:43] LABS: ANION GAP 9 MEQ/L (2-14); CHLORIDE 103 MEQ/L (99-109); GFR ESTIMATE (CALCULATED) > 59 mL/min/; GLUCOSE 93 mg/dL (70-99); POTASSIUM 4.3 MEQ/L (3.7-5.4); SAMPLE HEMOLYSIS CHECK 0; SAMPLE ICTERIC CHECK 0; SAMPLE LIPEMIA CHECK 0; SODIUM 136 MEQ/L (136-147); UREA NITROGEN (BUN) 18 mg/dL (9-23)
[2017-01-14 07:21] VITALS: BP 127/77
[2017-01-14 12:19] VITALS: BP 113/70
[2017-01-14 16:45] VITALS: BP 127/63
[2017-01-14 20:30] VITALS: BP 122/78
[2017-01-15] VITALS (7 sets, daily range): BP systolic 105–126; BP diastolic 51–78
[2017-01-15 05:46] LABS: HEMATOCRIT 31.2 % (36.0-46.0); MCH 29.5 PG (29.0-34.0); MCHC 31.4 G/DL (30.0-36.0); MEAN PLAT.VOLUME 8.8 uM^3 (9.5-12.4); PLATELET COUNT 287 K/uL (156-360); RBC DIS.WIDTH-CV 15.9 % (11.8-14.6); RBC DIS.WIDTH-SD 54.1 % (39-53); RED BLOOD COUNT 3.32 M/uL (3.80-5.20)
[2017-01-15 06:05] LABS: ANION GAP 7 MEQ/L (2-14); CHLORIDE 101 MEQ/L (99-109); GFR ESTIMATE (CALCULATED) 56 mL/min/; GLUCOSE 79 mg/dL (70-99); POTASSIUM 4.5 MEQ/L (3.7-5.4); SAMPLE HEMOLYSIS CHECK 0; SAMPLE ICTERIC CHECK 0; SAMPLE LIPEMIA CHECK 0; SODIUM 132 MEQ/L (136-147); UREA NITROGEN (BUN) 17 mg/dL (9-23)
[2017-01-16 01:52] VITALS: BP 118/67
[2017-01-16 08:00] VITALS: BP 113/57
[2017-01-16 12:00] VITALS: BP 98/53
[2017-01-16 16:00] VITALS: BP 104/55
[2017-01-16 19:13] VITALS: BP 109/58
[2017-01-16 23:56] VITALS: BP 102/55
[2017-01-17 03:57] VITALS: BP 107/57
[2017-01-17 04:48] LABS: HEMATOCRIT 30.7 % (36.0-46.0); MCH 30.2 PG (29.0-34.0); MCHC 31.9 G/DL (30.0-36.0); MCV 94.5 FL (83-99); NRBC (%) 0.3 /100 WBC (0-0); PLATELET COUNT 254 K/uL (156-360); RBC DIS.WIDTH-CV 15.9 % (11.8-14.6); RBC DIS.WIDTH-SD 54.3 % (39-53); RED BLOOD COUNT 3.25 M/uL (3.80-5.20); WHITE BLOOD COUNT 11.9 K/uL (4.1-10.2)
[2017-01-17 05:05] LABS: CHLORIDE 102 mEq/L (99-109); POTASSIUM 4.7 mEq/L (3.7-5.4); SODIUM 132 mEq/L (136-147)
[2017-01-17 05:07] LABS: GLUCOSE 95 mg/dL (70-99)
[2017-01-17 05:08] LABS: ANION GAP 8 MEQ/L (2-14)
[2017-01-17 05:10] LABS: GFR ESTIMATE (CALCULATED) > 59 mL/min/
[2017-01-17 05:11] LABS: UREA NITROGEN (BUN) 15 mg/dL (9-23)
[2017-01-17 09:21] VITALS: BP 127/69
[2017-01-17] MEDS ORDERED: DIGOXIN125 MCG PO (09:43)
[2017-01-17 13:07] VITALS: BP 126/79
== END 2017-01-17 15:40 | DRG 308 ==
LOC: EME 15:54 → EDOF 19:36 → 4EAST 19:36 → ENRESERV 19:45 → 4EAST 20:51
PROVIDERS: Emergency Medicine; Hospitalist
DX: I48.2 Chronic atrial fibrillation (principal); L89.94 Pressure ulcer of unspecified site, stage 4; I70.209 Unspecified atherosclerosis of native arteries of extremities, unspecified extremity; J96.10 Chronic respiratory failure, unspecified whether with hypoxia or hypercapnia; G40.909 Epilepsy, unspecified, not intractable, without status epilepticus; Z68.34 Body mass index [BMI] 34.0-34.9, adult; L89.894 Pressure ulcer of other site, stage 4; I25.10 Atherosclerotic heart disease of native coronary artery without angina pectoris; I11.0 Hypertensive heart disease with heart failure; E78.5 Hyperlipidemia, unspecified; L89.159 Pressure ulcer of sacral region, unspecified stage; E66.2 Morbid (severe) obesity with alveolar hypoventilation; M06.9 Rheumatoid arthritis, unspecified; I50.9 Heart failure, unspecified; K21.9 Gastro-esophageal reflux disease without esophagitis; F41.8 Other specified anxiety disorders; F03.90 Unspecified dementia, unspecified severity, without behavioral disturbance, psychotic disturbance, mood disturbance, and anxiety; E03.9 Hypothyroidism, unspecified; N39.0 Urinary tract infection, site not specified; Z16.12 Extended spectrum beta lactamase (ESBL) resistance; I71.2 Thoracic aortic aneurysm, without rupture; Z87.891 Personal history of nicotine dependence; Z86.73 Personal history of transient ischemic attack (TIA), and cerebral infarction without residual deficits; Z86.718 Personal history of other venous thrombosis and embolism; Z98.1 Arthrodesis status; I25.2 Old myocardial infarction; Z79.01 Long term (current) use of anticoagulants; Z79.899 Other long term (current) drug therapy; Z95.5 Presence of coronary angioplasty implant and graft
CPT/HCPCS: 71010; 80048; 80053; 84484; 85025; 85027; 85610; 85730; 87040; 93005; 94640; 94640 76; 99281; 99285; C1755; J1650; J7040

== ENCOUNTER 2017-05-22 12:00 | Inpatient (IN) | payer OTHER, MEDICARE ==
[~2017-05-22] VITALS: Ht 172.7 cm; Wt 107.2 kg
[~2017-05-22 12:00] MED LIST changes: +DIGOXIN125 MCG PO; +DULCOLAX10 MG PR; +LIDOCARE1 EACH TP
[2017-05-22 13:45] LABS: BASOPHIL (%) 0.3 % (0-1); BASOPHIL COUNT 0.1 K/uL (0-0.1); EOSINOPHIL (%) 1.2 % (0-5); EOSINOPHIL COUNT 0.2 K/uL (0-0.3); HEMATOCRIT 34.8 % (36.0-46.0); HEMOGLOBIN 10.7 G/DL (11.9-15.5); IMMATURE GRANULOCYTE (%) 0.6 % (0.0-0.7); MCH 30.2 PG (29.0-34.0); MCHC 30.7 G/DL (30.0-36.0); MCV 98.3 FL (83-99); NEUTROPHIL (%) 83.9 % (45-76); PLATELET COUNT 361 K/uL (156-360); RBC DIS.WIDTH-SD 54.3 % (39-53); RED BLOOD COUNT 3.54 M/uL (3.80-5.20); WHITE BLOOD COUNT 14.3 K/uL (4.1-10.2)
[2017-05-22 14:01] LABS: CHLORIDE 95 mEq/L (99-109); POTASSIUM 5.1 mEq/L (3.7-5.4); SODIUM 142 mEq/L (136-147)
[2017-05-22 14:03] LABS: GLUCOSE 107 mg/dL (70-99); TOTAL PROTEIN 6.7 g/dL (6.4-8.3)
[2017-05-22 14:05] LABS: TOTAL BILIRUBIN 0.3 mg/dL (0.0-1.0)
[2017-05-22 14:06] LABS: ALKALINE PHOSPHATASE 95 IU/L (3-129)
[2017-05-22 14:07] LABS: CREATININE 0.7 mg/dL (0.6-1.3); GFR ESTIMATE (CALCULATED) > 59 mL/min/
[2017-05-22 14:08] LABS: AST (GOT) 18 IU/L (2-34); UREA NITROGEN (BUN) 16 mg/dL (9-23)
[2017-05-22 14:09] LABS: ALT (GPT) 15 IU/L (3-49)
[2017-05-22 14:11] LABS: TROP-I INTERPRETATION NEGATIVE; TROPONIN-I < 0.01 ng/mL (0.0-0.30)
[2017-05-22] MEDS ORDERED: ELIQUIS5 MG PO (16:54)
[2017-05-22] MEDS ORDERED: HYDROCODON-ACE1 EAC7 PO (16:56)
[2017-05-22] MEDS ORDERED: MILK OF MAGN PO (16:59)
[2017-05-22] MEDS ORDERED: ARTIFICIAL TEAR15 M1 BOTH EYES (17:01)
[2017-05-22] MEDS ORDERED: PROMETHAZINE12.5 M1 PO (17:06)
[2017-05-22] MEDS ORDERED: TYLENOL REGULA325 MG PO (17:08)
[2017-05-22 18:25] LABS: APPEARANCE SL.HAZY ((CLEAR)); BILIRUBIN NEGATIVE; BLOOD NEGATIVE; COLOR YELLOW ((YELLOW)); GLUCOSE (STRIP) NEGATIVE; KETONES NEGATIVE; LEUKOCYTES MODERATE; NITRITE POSITIVE; PROTEIN (STRIP) NEGATIVE; SPECIFIC GRAVITY 1.024 (1.000-1.030); UROBILINOGEN 0.2 MG/DL (0.2-1.0)
[2017-05-22 18:38] LABS: BACTERIA NONE SEEN /HPF; EPITHELIAL CELLS RARE /HPF; HYALINE CASTS 0-5 /LPF; MUCUS TRACE /LPF; RED BLOOD CELLS NONE SEEN /HPF (0-5); UCUL ADDED? YES; WHITE BLOOD CELLS 40-50 /HPF (0-5)
[2017-05-22 22:01] LABS: TYPE OF FLUID PLEURAL
[2017-05-22 22:32] LABS: BODY FLUID GLUCOSE 110 MG/DL
[2017-05-22 22:57] LABS: APPEARANCE CLOUDY-BLOODY; BODY FLUID EOSINOPHILS 0 % (0-25); BODY FLUID RBC'S 3000 /MM^3 (0-100); BODY FLUID WBC'S 22 /MM^3 (0-500); MONONUCLEAR WBC'S 40 %; POLYNUCLEAR WBC'S 60 % (0-25)
[2017-05-23] VITALS (7 sets, daily range): BP systolic 97–119; BP diastolic 48–79
[2017-05-23 07:53] LABS: HEMATOCRIT 34.6 % (36.0-46.0); HEMOGLOBIN 10.4 G/DL (11.9-15.5); MCH 28.8 PG (29.0-34.0); MCHC 30.1 G/DL (30.0-36.0); MCV 95.8 FL (83-99); PLATELET COUNT 316 K/uL (156-360); RBC DIS.WIDTH-CV 15.1 % (11.8-14.6); RBC DIS.WIDTH-SD 52.7 % (39-53); RED BLOOD COUNT 3.61 M/uL (3.80-5.20); WHITE BLOOD COUNT 16.5 K/uL (4.1-10.2)
[2017-05-23 08:47] LABS: CHLORIDE 97 MEQ/L (99-109); CREATININE 0.6 MG/DL (0.6-1.3); GFR ESTIMATE (CALCULATED) > 59 mL/min/; GLUCOSE 83 mg/dL (70-99); POTASSIUM 4.5 MEQ/L (3.7-5.4); SODIUM 141 MEQ/L (136-147); UREA NITROGEN (BUN) 15 mg/dL (9-23)
[2017-05-24 03:53] VITALS: BP 114/59
[2017-05-24 07:46] VITALS: BP 107/61
[2017-05-24 11:30] VITALS: BP 124/72
[2017-05-24 15:50] VITALS: BP 134/63
[2017-05-24 19:58] VITALS: BP 118/70
[2017-05-24 23:50] VITALS: BP 128/69
[2017-05-24 23:52] LABS: BODY FLUID PH 7.8 (())
[2017-05-25 08:10] VITALS: BP 129/64
[2017-05-25 10:41] LABS: HEMATOCRIT 32.7 % (36.0-46.0); HEMOGLOBIN 10.3 G/DL (11.9-15.5); MCH 29.3 PG (29.0-34.0); MCHC 31.5 G/DL (30.0-36.0); MCV 93.2 FL (83-99); PLATELET COUNT 360 K/uL (156-360); RBC DIS.WIDTH-CV 15.3 % (11.8-14.6); RBC DIS.WIDTH-SD 52.1 % (39-53); RED BLOOD COUNT 3.51 M/uL (3.80-5.20); WHITE BLOOD COUNT 12.7 K/uL (4.1-10.2)
[2017-05-25 11:24] LABS: CHLORIDE 92 MEQ/L (99-109); CREATININE 0.5 MG/DL (0.6-1.3); GFR ESTIMATE (CALCULATED) > 59 mL/min/; GLUCOSE 84 mg/dL (70-99); POTASSIUM 4.3 MEQ/L (3.7-5.4); SODIUM 136 MEQ/L (136-147); UREA NITROGEN (BUN) 12 mg/dL (9-23)
[2017-05-25] MEDS ORDERED: SANTYL30 GM TP (11:54)
== END 2017-05-25 16:25 | DRG 186 ==
LOC: EME 12:00 → EDOF 17:00 → 4EAST 17:00 → ENRESERV 17:05 → 4EAST 05-23 00:49 → ENRESERV 05-23 11:30 → 5EAST 05-23 15:05 → ENPENDDIS 05-25 16:00 → 5EAST 05-25 16:25
PROVIDERS: Emergency Medicine; Family Medicine; Hospitalist; Physician Assistant
PROC: 0W9B3ZX Drainage of Left Pleural Cavity, Percutaneous Approach, Diagnostic (ICD-10-PCS; principal; 2017-05-22)
PROC: 0W9B3ZZ Drainage of Left Pleural Cavity, Percutaneous Approach (ICD-10-PCS; principal; 2017-05-22)
DX: J90 Pleural effusion, not elsewhere classified (principal); J96.21 Acute and chronic respiratory failure with hypoxia; L89.893 Pressure ulcer of other site, stage 3; L89.623 Pressure ulcer of left heel, stage 3; L89.890 Pressure ulcer of other site, unstageable; I48.2 Chronic atrial fibrillation; J44.9 Chronic obstructive pulmonary disease, unspecified; I11.0 Hypertensive heart disease with heart failure; I50.9 Heart failure, unspecified; I95.81 Postprocedural hypotension; J98.11 Atelectasis; I25.10 Atherosclerotic heart disease of native coronary artery without angina pectoris; E78.5 Hyperlipidemia, unspecified; F03.90 Unspecified dementia, unspecified severity, without behavioral disturbance, psychotic disturbance, mood disturbance, and anxiety; E03.9 Hypothyroidism, unspecified; G40.909 Epilepsy, unspecified, not intractable, without status epilepticus; I71.2 Thoracic aortic aneurysm, without rupture; M06.9 Rheumatoid arthritis, unspecified; M16.12 Unilateral primary osteoarthritis, left hip; Y95 Nosocomial condition; E66.2 Morbid (severe) obesity with alveolar hypoventilation; Z99.81 Dependence on supplemental oxygen; I25.2 Old myocardial infarction; Z95.5 Presence of coronary angioplasty implant and graft; Z68.35 Body mass index [BMI] 35.0-35.9, adult; Z74.01 Bed confinement status; Z79.01 Long term (current) use of anticoagulants; Z86.718 Personal history of other venous thrombosis and embolism; Z86.73 Personal history of transient ischemic attack (TIA), and cerebral infarction without residual deficits; Z87.440 Personal history of urinary (tract) infections; Z22.39 Carrier of other specified bacterial diseases; Z98.1 Arthrodesis status
CPT/HCPCS: 71045; 71046; 71275; 73502; 74177; 76942; 80048; 80053; 81003; 82945; 83605; 83615; 83615 91; 83880; 83986 90; 84134; 84484; 85025; 85027; 85379; 87040; 87070; 87075; 87077; 87086; 87186; 87205; 87449; 87641; 88108; 88305; 89051; 93005; 94640 76; 94760; 94799; 99202; 99281; 99285; J0456; J1940; J2185; J2543; J3370; J7030; J7050

== ENCOUNTER 2017-06-07 21:43 | Inpatient (IN) | payer OTHER, MEDICARE ==
[~2017-06-07] VITALS: Ht 170.2 cm; Wt 100.8 kg
[~2017-06-07 21:43] MED LIST changes: +ARTIFICIAL TEAR15 M1 BOTH EYES; +HYDROCODON-ACE1 EAC7 PO; +MILK OF MAGN PO; +SANTYL30 GM TP
[2017-06-07 22:36] LABS: BASOPHIL (%) 0.5 % (0-1); BASOPHIL COUNT 0.1 K/uL (0-0.1); EOSINOPHIL (%) 1.6 % (0-5); EOSINOPHIL COUNT 0.2 K/uL (0-0.3); HEMATOCRIT 36.7 % (36.0-46.0); IMMATURE GRANULOCYTE (%) 0.9 % (0.0-0.7); LYMPHOCYTE (%) 9.7 % (15-42); LYMPHOCYTE COUNT 1.2 K/uL (1.0-2.8); MCH 29.3 PG (29.0-34.0); MONOCYTE (%) 6.4 % (3-12); MONOCYTE COUNT 0.8 K/uL (0-0.8); NEUTROPHIL (%) 80.9 % (45-76); NEUTROPHIL COUNT 10.2 K/uL (1.8-6.4); NRBC (%) 0.2 /100 WBC (0-0); PLATELET COUNT 338 K/uL (156-360); RBC DIS.WIDTH-CV 15.6 % (11.8-14.6); RBC DIS.WIDTH-SD 54.7 % (39-53); RED BLOOD COUNT 3.75 M/uL (3.80-5.20); WHITE BLOOD COUNT 12.6 K/uL (4.1-10.2)
[2017-06-07 22:37] LABS: MCV 97.9 FL (83-99)
[2017-06-07 22:47] LABS: CHLORIDE 95 mEq/L (99-109); POTASSIUM 4.1 mEq/L (3.7-5.4); SODIUM 148 mEq/L (136-147)
[2017-06-07 22:49] LABS: GLUCOSE 77 mg/dL (70-99)
[2017-06-07 22:53] LABS: CREATININE 0.8 mg/dL (0.6-1.3); GFR ESTIMATE (CALCULATED) > 59 mL/min/; TROP-I INTERPRETATION NEGATIVE; TROPONIN-I 0.04 ng/mL (0.0-0.30)
[2017-06-07 22:54] LABS: UREA NITROGEN (BUN) 16 mg/dL (9-23)
[2017-06-08] MEDS ORDERED: MORPHINE CON20 MG/M1 PO (00:30)
[2017-06-08] MEDS ORDERED: CEFEPIME HCL1 GM IM (00:32)
[2017-06-08] MEDS ORDERED: FURO40I IV (00:34)
[2017-06-08] MEDS ORDERED: LIDOCARE1 EACH TP (00:36)
[2017-06-08 02:46] VITALS: BP 111/51
[2017-06-08 07:35] VITALS: BP 111/85
[2017-06-08 08:29] LABS: PTT 36.9 SEC (25-37)
[2017-06-08 09:55] LABS: INTER. NORMALIZED RATIO 3.1
[2017-06-08 10:48] LABS: C-REACTIVE PROTEIN 106.1 MG/L (0-10)
[2017-06-08 11:08] VITALS: BP 120/59
[2017-06-08] MEDS ORDERED: MULTI-VITAMIN1 EAC4 PO (13:34)
[2017-06-08] MEDS ORDERED: MIRTAZAPINE7.5 MG PO (13:35)
[2017-06-08] MEDS ORDERED: FLORASTOR250 MG PO (13:42)
[2017-06-08] MEDS ORDERED: DUONEB 2.5-0.5 M3 ML AEROSOL (13:43)
[2017-06-08] MEDS ORDERED: ONDANSETRON HCL4 MG PO (13:48)
[2017-06-08 16:11] VITALS: BP 109/67
[2017-06-08 16:44] LABS: ALBUMIN 2.7 G/DL (3.2-4.8); ALKALINE PHOSPHATASE 76 IU/L (3-129); ALT (GPT) 8 IU/L (3-49); AST (GOT) 17 IU/L (2-34); DIRECT BILIRUBIN 0.1 mg/dL (0.0-0.3); TOTAL BILIRUBIN 0.5 MG/DL (0.0-1.0); TOTAL PROTEIN 5.3 G/DL (6.4-8.3)
[2017-06-08 19:42] VITALS: BP 152/83
[2017-06-08 23:22] VITALS: BP 105/65
[2017-06-09 03:15] VITALS: BP 105/64
[2017-06-09 06:01] LABS: HEMATOCRIT 36.3 % (36.0-46.0); HEMOGLOBIN 10.8 G/DL (11.9-15.5); MCH 28.6 PG (29.0-34.0); MCHC 29.8 G/DL (30.0-36.0); PLATELET COUNT 336 K/uL (156-360); RBC DIS.WIDTH-CV 15.8 % (11.8-14.6); RBC DIS.WIDTH-SD 54.4 % (39-53); RED BLOOD COUNT 3.78 M/uL (3.80-5.20); WHITE BLOOD COUNT 13.5 K/uL (4.1-10.2)
[2017-06-09 06:14] LABS: INTER. NORMALIZED RATIO 2.1
[2017-06-09 06:21] LABS: ALBUMIN 2.6 G/DL (3.2-4.8); ALKALINE PHOSPHATASE 76 IU/L (3-129); ALT (GPT) 8 IU/L (3-49); AST (GOT) 17 IU/L (2-34); CHLORIDE 92 MEQ/L (99-109); CREATININE 0.7 MG/DL (0.6-1.3); GFR ESTIMATE (CALCULATED) > 59 mL/min/; GLUCOSE 70 mg/dL (70-99); POTASSIUM 3.7 MEQ/L (3.7-5.4); SODIUM 142 MEQ/L (136-147); TOTAL BILIRUBIN 0.6 MG/DL (0.0-1.0); TOTAL PROTEIN 5.5 G/DL (6.4-8.3); UREA NITROGEN (BUN) 14 mg/dL (9-23)
[2017-06-09 07:20] VITALS: BP 107/66
[2017-06-09 09:14] LABS: TYPE OF FLUID PLEURAL
[2017-06-09 10:21] LABS: APPEARANCE HAZY-YELLOW; BODY FLUID EOSINOPHILS 0 % (0-25); BODY FLUID RBC'S 12000 /MM^3 (0-100); BODY FLUID WBC'S 757 /MM^3 (0-500); MONONUCLEAR WBC'S 92 %; POLYNUCLEAR WBC'S 8 % (0-25)
[2017-06-09 19:36] LABS: BODY FLUID GLUCOSE 73 MG/DL; BODY FLUID LDH 105 IU/L; BODY FLUID PROTEIN 3.6 G/DL
[2017-06-10 08:04] VITALS: BP 98/60
[2017-06-10 08:52] VITALS: BP 109/55
[2017-06-10 09:21] LABS: HEMATOCRIT 37.6 % (36.0-46.0); HEMOGLOBIN 11.6 G/DL (11.9-15.5); MCH 29.7 PG (29.0-34.0); MCHC 30.9 G/DL (30.0-36.0); MCV 96.2 FL (83-99); PLATELET COUNT 304 K/uL (156-360); RBC DIS.WIDTH-CV 15.9 % (11.8-14.6); RBC DIS.WIDTH-SD 55.6 % (39-53); RED BLOOD COUNT 3.91 M/uL (3.80-5.20); WHITE BLOOD COUNT 11.2 K/uL (4.1-10.2)
[2017-06-10 09:44] LABS: CHLORIDE 92 MEQ/L (99-109); CREATININE 0.7 MG/DL (0.6-1.3); GFR ESTIMATE (CALCULATED) > 59 mL/min/; GLUCOSE 72 mg/dL (70-99); POTASSIUM 3.9 MEQ/L (3.7-5.4); SODIUM 143 MEQ/L (136-147); UREA NITROGEN (BUN) 16 mg/dL (9-23)
[2017-06-10 16:08] LABS: INTER. NORMALIZED RATIO 1.4
[2017-06-10 17:36] VITALS: BP 111/54
[2017-06-11 00:21] VITALS: BP 118/54
[2017-06-11 04:06] VITALS: BP 116/56
[2017-06-11 07:20] VITALS: BP 116/59
[2017-06-11 11:30] VITALS: BP 129/61
== END 2017-06-11 13:27 | DRG 292 ==
LOC: EME → EDBD 21:43 → EDOF 06-08 01:19 → 5EAST 06-08 01:19 → ENRESERV 06-08 01:20 → 5EAST 06-08 02:13
PROVIDERS: Emergency Medicine; Internal Medicine; Nurse Practitioner; Physician Assistant; Radiology Diagnostic Radiology
PROC: 0W9B3ZZ Drainage of Left Pleural Cavity, Percutaneous Approach (ICD-10-PCS; principal; 2017-06-09)
DX: I11.0 Hypertensive heart disease with heart failure (principal); I50.9 Heart failure, unspecified; J44.9 Chronic obstructive pulmonary disease, unspecified; G40.909 Epilepsy, unspecified, not intractable, without status epilepticus; J96.10 Chronic respiratory failure, unspecified whether with hypoxia or hypercapnia; J98.11 Atelectasis; J96.11 Chronic respiratory failure with hypoxia; F03.90 Unspecified dementia, unspecified severity, without behavioral disturbance, psychotic disturbance, mood disturbance, and anxiety; I25.10 Atherosclerotic heart disease of native coronary artery without angina pectoris; I70.201 Unspecified atherosclerosis of native arteries of extremities, right leg; R79.1 Abnormal coagulation profile; I48.2 Chronic atrial fibrillation; F41.9 Anxiety disorder, unspecified; E66.2 Morbid (severe) obesity with alveolar hypoventilation; R13.10 Dysphagia, unspecified; I71.2 Thoracic aortic aneurysm, without rupture; M06.9 Rheumatoid arthritis, unspecified; F32.9 Major depressive disorder, single episode, unspecified; L89.159 Pressure ulcer of sacral region, unspecified stage; L97.419 Non-pressure chronic ulcer of right heel and midfoot with unspecified severity; L89.890 Pressure ulcer of other site, unstageable; L97.529 Non-pressure chronic ulcer of other part of left foot with unspecified severity; E03.9 Hypothyroidism, unspecified; E78.5 Hyperlipidemia, unspecified; Z79.01 Long term (current) use of anticoagulants; Z51.5 Encounter for palliative care; Z66 Do not resuscitate; I25.2 Old myocardial infarction; Z68.34 Body mass index [BMI] 34.0-34.9, adult; Z88.1 Allergy status to other antibiotic agents; Z79.899 Other long term (current) drug therapy; Z95.5 Presence of coronary angioplasty implant and graft; Z99.81 Dependence on supplemental oxygen; Z90.710 Acquired absence of both cervix and uterus; Z86.73 Personal history of transient ischemic attack (TIA), and cerebral infarction without residual deficits
CPT/HCPCS: 71045; 73630; 73650; 73720; 76942; 80048; 80053; 80076; 82945; 82948; 83615 91; 83880; 83986 90; 84157; 84484; 85025; 85027; 85610; 85651; 85730; 86140; 87070; 87075; 87205; 87502; 88108; 88305; 89051; 93005; 93926; 94640; 94640 76; 94760; 94799; 99202; 99281; 99285; J1940

== ENCOUNTER 2017-08-08 13:49 | Emergency (ER) | payer OTHER, MEDICARE ==
[~2017-08-08] VITALS: Ht 172.7 cm; Wt 98.2 kg
[~2017-08-08 13:49] MED LIST changes: +CEFEPIME HCL1 GM IM; +FLORASTOR250 MG PO; +FURO40I IV; +MIRTAZAPINE7.5 MG PO; +MORPHINE CON20 MG/M1 PO; +MULTI-VITAMIN1 EAC4 PO
[2017-08-08 14:49] LABS: BASOPHIL (%) 0.4 % (0-1); EOSINOPHIL (%) 1.2 % (0-5); EOSINOPHIL COUNT 0.1 K/uL (0-0.3); HEMATOCRIT 29.4 % (36.0-46.0); HEMOGLOBIN 8.9 G/DL (11.9-15.5); IMMATURE GRANULOCYTE (%) 1.1 % (0.0-0.7); LYMPHOCYTE (%) 13.1 % (15-42); LYMPHOCYTE COUNT 1.4 K/uL (1.0-2.8); MCH 29.6 PG (29.0-34.0); MCHC 30.3 G/DL (30.0-36.0); MCV 97.7 FL (83-99); MONOCYTE (%) 12.2 % (3-12); MONOCYTE COUNT 1.3 K/uL (0-0.8); NEUTROPHIL COUNT 7.8 K/uL (1.8-6.4); NRBC (%) 0.2 /100 WBC (0-0); PLATELET COUNT 297 K/uL (156-360); RBC DIS.WIDTH-CV 14.8 % (11.8-14.6); RBC DIS.WIDTH-SD 52.8 % (39-53); RED BLOOD COUNT 3.01 M/uL (3.80-5.20); WHITE BLOOD COUNT 10.9 K/uL (4.1-10.2)
[2017-08-08 14:57] LABS: ALBUMIN 3.1 g/dL (3.2-4.8); CHLORIDE 96 mEq/L (99-109); POTASSIUM 5.6 mEq/L (3.7-5.4); SODIUM 135 mEq/L (136-147)
[2017-08-08 15:00] LABS: GLUCOSE 109 mg/dL (70-99); TOTAL PROTEIN 6.9 g/dL (6.4-8.3)
[2017-08-08 15:02] LABS: TOTAL BILIRUBIN 0.3 mg/dL (0.0-1.0)
[2017-08-08 15:03] LABS: ALKALINE PHOSPHATASE 97 IU/L (3-129); CREATININE 1.2 mg/dL (0.6-1.3); GFR ESTIMATE (CALCULATED) 45 mL/min/
[2017-08-08 15:04] LABS: UREA NITROGEN (BUN) 19 mg/dL (9-23)
[2017-08-08 15:05] LABS: AST (GOT) 16 IU/L (2-34)
[2017-08-08 15:06] LABS: ALT (GPT) 11 IU/L (3-49)
[2017-08-08 15:07] LABS: LIPASE 10 U/L (1.0-51.0)
[2017-08-08 17:13] LABS: APPEARANCE CLOUDY ((CLEAR)); BILIRUBIN NEGATIVE; BLOOD NEGATIVE; COLOR YELLOW ((YELLOW)); GLUCOSE (STRIP) NEGATIVE; KETONES NEGATIVE; LEUKOCYTES LARGE; NITRITE POSITIVE; PROTEIN (STRIP) NEGATIVE; SPECIFIC GRAVITY 1.012 (1.000-1.030); UROBILINOGEN 0.2 MG/DL (0.2-1.0)
[2017-08-08 17:54] LABS: EPITHELIAL CELLS 1+ /HPF; RED BLOOD CELLS NONE SEEN /HPF (0-5); WHITE BLOOD CELLS 20-30 /HPF (0-5)
[2017-08-08 17:55] LABS: MUCUS NONE SEEN /LPF
[2017-08-08 17:56] LABS: BACTERIA 2+ /HPF
[2017-08-08] MEDS ORDERED: KEFLEX500 MG PO (18:32)
[2017-08-08 19:59] VITALS: BP 117/69
== END 2017-08-08 19:59 ==
LOC: EME 13:49
PROVIDERS: Emergency Medicine
DX: N39.0 Urinary tract infection, site not specified (principal); R10.32 Left lower quadrant pain; I10 Essential (primary) hypertension; K21.9 Gastro-esophageal reflux disease without esophagitis; J44.9 Chronic obstructive pulmonary disease, unspecified; E78.5 Hyperlipidemia, unspecified; E03.9 Hypothyroidism, unspecified; I25.2 Old myocardial infarction; F41.9 Anxiety disorder, unspecified; F32.9 Major depressive disorder, single episode, unspecified; Z86.73 Personal history of transient ischemic attack (TIA), and cerebral infarction without residual deficits; Z95.5 Presence of coronary angioplasty implant and graft; Z87.440 Personal history of urinary (tract) infections; Z90.710 Acquired absence of both cervix and uterus; Z88.1 Allergy status to other antibiotic agents
CPT/HCPCS: 74177; 80053; 81003; 83690; 85025; 99281; 99284; J0696; J2405; J3010

== ENCOUNTER 2017-08-21 12:24 | Inpatient (IN) | payer OTHER, MEDICARE ==
[~2017-08-21] VITALS: Ht 165.1 cm; Wt 92.0 kg
[~2017-08-21 12:24] MED LIST changes: +KEFLEX500 MG PO
[2017-08-21 12:42] LABS: BASOPHIL (%) 0.6 % (0-1); BASOPHIL COUNT 0.1 K/uL (0-0.1); EOSINOPHIL (%) 3.5 % (0-5); EOSINOPHIL COUNT 0.3 K/uL (0-0.3); HEMATOCRIT 33.2 % (36.0-46.0); HEMOGLOBIN 10.3 G/DL (11.9-15.5); IMMATURE GRANULOCYTE (%) 0.6 % (0.0-0.7); LYMPHOCYTE (%) 20.5 % (15-42); LYMPHOCYTE COUNT 1.7 K/uL (1.0-2.8); MCH 29.2 PG (29.0-34.0); MCV 94.1 FL (83-99); MONOCYTE (%) 11.5 % (3-12); MONOCYTE COUNT 0.9 K/uL (0-0.8); NEUTROPHIL (%) 63.3 % (45-76); NEUTROPHIL COUNT 5.1 K/uL (1.8-6.4); PLATELET COUNT 291 K/uL (156-360); RBC DIS.WIDTH-SD 51.5 % (39-53); RED BLOOD COUNT 3.53 M/uL (3.80-5.20)
[2017-08-21 12:49] LABS: PTT 34.6 SEC (25-37)
[2017-08-21 13:01] LABS: INTER. NORMALIZED RATIO 1.5
[2017-08-21 13:12] LABS: AMYLASE 78 IU/L (1-118); CHLORIDE 102 mEq/L (99-109); POTASSIUM 3.8 mEq/L (3.7-5.4); SODIUM 141 mEq/L (136-147)
[2017-08-21 13:13] LABS: GLUCOSE 83 mg/dL (70-99)
[2017-08-21 13:17] LABS: CREATININE 0.6 mg/dL (0.6-1.3); GFR ESTIMATE (CALCULATED) > 59 mL/min/; SERUM ETHYL ALCOHOL < 10 mg/dL
[2017-08-21 13:18] LABS: UREA NITROGEN (BUN) 6 mg/dL (9-23)
[2017-08-21 13:20] LABS: LIPASE 16 U/L (1.0-51.0)
[2017-08-21 13:25] LABS: TROP-I INTERPRETATION NEGATIVE; TROPONIN-I 0.01 ng/mL (0.0-0.30)
[2017-08-21 14:20] LABS: APPEARANCE TURBID ((CLEAR)); BILIRUBIN NEGATIVE; BLOOD SMALL; COLOR AMBER ((YELLOW)); GLUCOSE (STRIP) NEGATIVE; KETONES 5; LEUKOCYTES MODERATE; NITRITE POSITIVE; PROTEIN (STRIP) 100; SPECIFIC GRAVITY 1.017 (1.000-1.030); UROBILINOGEN 0.2 MG/DL (0.2-1.0)
[2017-08-21 14:33] LABS: AMPHETAMINE NEGATIVE (500 ng/mL); BARBITURATES NEGATIVE (200 ng/mL); BENZODIAZEPINES NEGATIVE (150 ng/mL); BUPRENORPHINE NEGATIVE (10 ng/mL); COCAINE NEGATIVE (150 ng/mL); METHADONE NEGATIVE (200 ng/mL); METHAMPHETAMINE NEGATIVE (500 ng/mL); OPIATES (MORPHINE) NEGATIVE (100 ng/mL); OXYCODONE NEGATIVE (100 ng/mL); PHENCYCLIDINE NEGATIVE (25 ng/mL); PROPOXYPHENE NEGATIVE (300 ng/mL); THC CANNABINOIDS NEGATIVE (50 ng/mL); TRICYCLIC ANTIDEPRESSANTS NEGATIVE (300 ng/mL)
[2017-08-21 14:34] LABS: RED BLOOD CELLS RARE /HPF (0-5); WHITE BLOOD CELLS 30-40 /HPF (0-5)
[2017-08-21 14:35] LABS: BACTERIA 1+ /HPF; EPITHELIAL CELLS 1+ /HPF; MUCUS NONE SEEN /LPF; UCUL ADDED? YES
[2017-08-21] MEDS ORDERED: BREO ELLIPTA 21 EACH IH (16:54)
[2017-08-21] MEDS ORDERED: DIGOXIN125 MCG PO (16:55)
[2017-08-21] MEDS ORDERED: IRON325 M1 PO (16:56)
[2017-08-21] MEDS ORDERED: FUROSEMIDE40 MG PO (16:57)
[2017-08-21] MEDS ORDERED: SENNA8.6 MG PO (16:59)
[2017-08-21 18:18] LABS: HDL CHOLESTEROL 50 MG/DL (Desirable>=50); LDL CHOLESTEROL 63 mg/dL (Desirable<100); NON-HDL CHOLESTEROL 81 mg/dL (Desirable<160); TOTAL CHOLESTEROL 131 mg/dL (Desirable<200); TRIGLYCERIDES 89 MG/DL (Normal: <150)
[2017-08-21 18:48] VITALS: BP 98/68
[2017-08-21 19:30] LABS: TROP-I INTERPRETATION NEGATIVE; TROPONIN-I 0.02 ng/mL (0.0-0.30)
[2017-08-22 00:23] VITALS: BP 112/74
[2017-08-22 01:38] LABS: HEMATOCRIT 30.3 % (36.0-46.0); HEMOGLOBIN 9.4 G/DL (11.9-15.5); MCH 29.1 PG (29.0-34.0); MCV 93.8 FL (83-99); PLATELET COUNT 251 K/uL (156-360); RBC DIS.WIDTH-SD 51.6 % (39-53); RED BLOOD COUNT 3.23 M/uL (3.80-5.20); WHITE BLOOD COUNT 7.5 K/uL (4.1-10.2)
[2017-08-22 01:49] LABS: ALBUMIN 2.6 g/dL (3.2-4.8); CHLORIDE 104 mEq/L (99-109); POTASSIUM 3.6 mEq/L (3.7-5.4); SODIUM 142 mEq/L (136-147)
[2017-08-22 01:51] LABS: GLUCOSE 78 mg/dL (70-99); TOTAL PROTEIN 5.6 g/dL (6.4-8.3)
[2017-08-22 01:53] LABS: TOTAL BILIRUBIN 0.3 mg/dL (0.0-1.0)
[2017-08-22 01:55] LABS: ALKALINE PHOSPHATASE 79 IU/L (3-129); CREATININE 0.6 mg/dL (0.6-1.3); GFR ESTIMATE (CALCULATED) > 59 mL/min/
[2017-08-22 01:56] LABS: UREA NITROGEN (BUN) 6 mg/dL (9-23)
[2017-08-22 01:57] LABS: AST (GOT) 18 IU/L (2-34)
[2017-08-22 01:58] LABS: ALT (GPT) 10 IU/L (3-49)
[2017-08-22 02:04] LABS: TROP-I INTERPRETATION NEGATIVE; TROPONIN-I 0.02 ng/mL (0.0-0.30)
[2017-08-22 04:30] VITALS: BP 116/56
[2017-08-22 08:20] VITALS: BP 104/52
[2017-08-22 12:05] VITALS: BP 109/64
[2017-08-22 12:06] LABS: HEMOGLOBIN A1c (GLYCOHEMOGLOB) 4.5 % (Below 5.7)
[2017-08-22 15:21] VITALS: BP 117/50; BP 88/49
[2017-08-22 19:49] VITALS: BP 126/54
[2017-08-23] VITALS (7 sets, daily range): BP systolic 97–116; BP diastolic 56–80
[2017-08-23 06:15] LABS: BASOPHIL (%) 0.7 % (0-1); BASOPHIL COUNT 0.1 K/uL (0-0.1); EOSINOPHIL COUNT 0.3 K/uL (0-0.3); HEMOGLOBIN 9.7 G/DL (11.9-15.5); IMMATURE GRANULOCYTE (%) 0.7 % (0.0-0.7); LYMPHOCYTE COUNT 1.1 K/uL (1.0-2.8); MCH 28.5 PG (29.0-34.0); MCHC 30.3 G/DL (30.0-36.0); MCV 94.1 FL (83-99); MONOCYTE (%) 12.8 % (3-12); NEUTROPHIL (%) 67.8 % (45-76); NEUTROPHIL COUNT 5.2 K/uL (1.8-6.4); PLATELET COUNT 274 K/uL (156-360); RBC DIS.WIDTH-CV 15.2 % (11.8-14.6); RBC DIS.WIDTH-SD 52.9 % (39-53); WHITE BLOOD COUNT 7.7 K/uL (4.1-10.2)
[2017-08-23 06:38] LABS: CHLORIDE 106 MEQ/L (99-109); CREATININE 0.5 MG/DL (0.6-1.3); GFR ESTIMATE (CALCULATED) > 59 mL/min/; GLUCOSE 57 mg/dL (70-99); POTASSIUM 3.4 MEQ/L (3.7-5.4); SODIUM 143 MEQ/L (136-147); UREA NITROGEN (BUN) 6 mg/dL (9-23)
[2017-08-24 03:37] VITALS: BP 100/60
[2017-08-24 08:08] VITALS: BP 108/67
[2017-08-24 11:18] VITALS: BP 102/56
[2017-08-24 20:38] VITALS: BP 152/86
[2017-08-25 00:13] VITALS: BP 106/56
[2017-08-25 04:11] VITALS: BP 116/52
[2017-08-25 07:55] VITALS: BP 79/49
[2017-08-25 11:07] VITALS: BP 79/49
== END 2017-08-25 18:48 | disposition hospice, home (50) | DRG 64 ==
LOC: EME 12:24 → EDOF 17:03 → 5SOUTH 17:03 → ENRESERV 17:05 → 5SOUTH 18:20
PROVIDERS: Emergency Medicine; Hospitalist; Internal Medicine
DX: I63.9 Cerebral infarction, unspecified (principal); J69.0 Pneumonitis due to inhalation of food and vomit; I65.23 Occlusion and stenosis of bilateral carotid arteries; J44.9 Chronic obstructive pulmonary disease, unspecified; J96.10 Chronic respiratory failure, unspecified whether with hypoxia or hypercapnia; N39.0 Urinary tract infection, site not specified; F01.50 Vascular dementia, unspecified severity, without behavioral disturbance, psychotic disturbance, mood disturbance, and anxiety; G40.909 Epilepsy, unspecified, not intractable, without status epilepticus; R29.810 Facial weakness; Z99.81 Dependence on supplemental oxygen; Z87.440 Personal history of urinary (tract) infections; Z74.01 Bed confinement status; I48.2 Chronic atrial fibrillation; B37.9 Candidiasis, unspecified; M19.90 Unspecified osteoarthritis, unspecified site; E87.6 Hypokalemia; I25.2 Old myocardial infarction; Z51.5 Encounter for palliative care; R47.01 Aphasia; R13.10 Dysphagia, unspecified; M24.50 Contracture, unspecified joint; E78.5 Hyperlipidemia, unspecified; I25.10 Atherosclerotic heart disease of native coronary artery without angina pectoris; Z79.01 Long term (current) use of anticoagulants; Z66 Do not resuscitate; I70.232 Atherosclerosis of native arteries of right leg with ulceration of calf; L97.219 Non-pressure chronic ulcer of right calf with unspecified severity; I10 Essential (primary) hypertension; E66.9 Obesity, unspecified; Z68.33 Body mass index [BMI] 33.0-33.9, adult; K21.9 Gastro-esophageal reflux disease without esophagitis
CPT/HCPCS: 70450; 70496; 70498; 71045; 80048; 80053; 80061; 81003; 82150; 82948; 83036; 83605; 83690; 84145 90; 84484; 85025; 85027; 85610; 85730; 86850; 86900; 86901; 87040; 87077; 87086; 87186; 87801; 92526 GN; 92610 GN; 93005; 94640; 94760; 94799; 99281; 99285; G0480; J0696; J1650; J1953; J2060; J2270; J3370; J3480; J7030; J7050